=== PATIENT | female | born 1965 | race Caucasian/White ===

== ENCOUNTER 2025-03-28 12:08 | Inpatient (IN) | payer MEDICAID ==
[~2025-03-28] VITALS: Ht 182.9 cm; Wt 146.8 kg
[2025-03-28] VITALS (16 sets, daily range): BP systolic 82–114; BP diastolic 52–67; PULSE 68–97; RESP 16–18; O2SAT 90–96
[2025-03-28] MEDS: diltiazem-NS 100mg/100ml 100 ML IV ONE (12:35)
--- NOTE | 2025-03-28 13:08 | Physician Documentation ---
History of Present Illness ~ General Chief Complaint: Multiple Medical Complaints Stated Complaint: TRANSFER Time Seen by MD: 12:46 Primary Medical Doctor: NONE Source: patient (3), RN/MD (Transferring facility) History of Present Illness Initial Comments Patient was transferred to us from [facility], for NSTEMI, CHF, atrial fib with rapid ventricular rate, on heparin and diltiazem drips. She is a very pleasant morbidly obese female who does not get regular medical care, reports that she previously only had a questionable history of diabetes, and potentially sleep apnea. Over the last month the patient reports progressive weakness in her legs and in her arms, went to [facility] last night because she was unable to get herself off the toilet. Once there, she was found to have mild shortness of breath but profound hypoxia, as well as atrial fibrillation with a rapid ventricular response. Workup included a lactic acid of three which has come down to 2.4, troponin of 917 at 2:30 a.m. in the morning and 985 at 4:45 a.m.. Urinalysis was negative, chemistries r emarkable for glucose of 241 and creatinine of 1.87. Protime 18.6, pro BNP of 650. Chest x-ray showed cardiomegaly and interstitial edema, CT angiogram was performed which showed no intraluminal filling defects suspicious for PE, right pleural effusion was noted, and a small amount of ascites. Patient was found to have O2 sat of about 80% and was placed on high-flow oxygen, heparin drip, and diltiazem. The diltiazem required stopping briefly because of blood pressure dropping a bit, but she arrives with it in place again. Patient reports she has never at any time had any chest pain, and she has no shortness of breath currently. She reports that her lower extremity edema is at baseline. Transferring physician felt that the patient likely had a recent [place], and is now suffering from pulmonary edema and congestive heart failure. Medication Reconciliation Allergies: Coded Allergies: Antihistamines - Alkylamine (Verified Adverse Reaction, Severe, VOMITING, 03/28/25) VOMITING codeine (Verified Adverse Reaction, Mild, NAUSEA, 03/28/25) Past Medical History Past Medical History: Sleep Apnea, Diabetes Other Past Medical History: Morbid obesity Smoking Status: Never smoker Alcohol Use: Sober (Stopped drinking about four weeks ago) Drug Use: none Review of Systems All Other Systems at this time: Reviewed and Negative Physical Exam Physical Exam Vital Signs: Temperature: 98.7, Source: Oral, Heart Rate: 70, Respiratory Rate: 18, BP: 94/56, Pulse Oximetry: 93, Weight: 147.000 Physical Exam General: Pt is awake, alert, oriented x4 in no acute physical distress, speaking in full sentences. Head: Normocephalic and atraumatic. Eyes: Conjunctiva normal. ENT: Mucous membranes moist. Neck: Supple. Chest: There is no accessory muscle use or retractions. Diminished breath sounds on the right. Cardiac: Regular rate and rhythm without murmurs, gallops or rubs. Palpation of the chest wall is normal. Abd: Soft, nondistended, nontender, with normoactive bowel sounds. No guarding or rebound. Extremities: 3+ lower extremity edema. Skin: [place], warm and dry with no significant rash appreciated. Neuro: Cranial nerves II-XII grossly intact. Gait not attempted. Progress Progress Note Labs from transferring Facility: WBC 7.35, hemoglobin 13.8, platelets 124 Sodium 136, potassium 4.0, chloride 98, CO2 30, anion gap eight, glucose 241, BUN 35, creatinine 1.87, total bilirubin 3.6, lactic acid 3.0 (initial), protime 18.6, proBNP 650 Troponin 917, TSH 10.1-7 PH 7.36, CO2 53, O2 23, bicarb 30. Chest x-ray showing cardiomegaly and pulmonary edema CT angiogram showing right-sided pleural effusion without obvious pulmonary emboli. Results/Orders Results/Orders Orders - JUNG BOWMAN MD High Flow O2 Daily (03/28/25 12:30) Heparin 25,000 Unit/250ml Bag (Heparin 2 (03/28/25 13:15) Page Hospitalist (03/28/25 13:15) Fill Out Med Reconciliation (03/28/25 13:15) Completed Orders - JUNG BOWMAN MD Cardiac Ptt (03/28/25 12:35) Diltiazem-Ns 100mg/100ml (Cardizem-Ns 10 (03/28/25 13:15) Hs Troponin I W Calculations (03/28/25 13:15) D-Dimer (03/28/25 12:55) Vital Signs 03/28/25 03/28/25 03/28/25 03/28/25 02:00 12:15 12:22 12:30 Temp 98.7 Pulse 91 70 70 Resp 20 18 B/P (MAP) 89/54 (66) 94/56 Pulse Ox 95 93 O2 Flow Rate 25.0 FiO2 75 70 03/28/25 03/28/25 03/28/25 03/28/25 12:35 12:35 12:36 12:45 Pulse 80 80 75 66 Resp 13 12 B/P (MAP) 94/56 94/56 90/46 (61) 90/50 (63) Pulse Ox 94 94 O2 Flow Rate 0 0 03/28/25 03/28/25 12:47 13:00 Pulse 76 Resp 16 13 B/P (MAP) 102/69 (80) Pulse Ox 93 O2 Flow Rate 0 Laboratory Tests Test 03/28/25 12:55 White Blood Count 6.7 Red Blood Count 4.32 Hemoglobin 12.8 Hematocrit 39.4 Mean Corpuscular Volume 91.3 Mean Corpuscular Hemoglobin 29.6 Mean Corpuscular Hemoglobin Concent 32.4 L Red Cell Distribution Width 19.2 H Platelet Count 123 L Mean Platelet Volume 10.7 H Neutrophils (%) (Auto) 75.0 Lymphocytes (%) (Auto) 10.0 L Monocytes (%) (Auto) 10.9 Eosinophils (%) (Auto) 3.1 Basophils (%) (Auto) 1.0 Neutrophils # (Auto) 5.0 Lymphocytes # (Auto) 0.7 L Monocytes # (Auto) 0.7 Eosinophils # (Auto) 0.2 Basophils # (Auto) 0.1 CBC Comment Platelet Estimate Decreased Red Blood Cell Morphology Perf Polychromasia Few Poikilocytosis 1+ Basophilic Stippling Anisocytosis 2+ Elliptocytes Few APTT (Heparin Protocol) 31 L D-Dimer 1.96 H D-Dimer Comment Coagulation Comments Sodium Level 140 Potassium Level 4.1 Chloride Level 103 Carbon Dioxide Level 28.9 Anion Gap 8 Blood Urea Nitrogen 33 H Creatinine 1.79 H Estimated GFR/1.73 m2 29 BUN/Creatinine Ratio 18.4 Glucose Level 218 H Hemoglobin A1c 9.7 H Osmolality 304 H Lactic Acid Level 1.9 Calcium Level 8.9 Total Bilirubin 3.1 H Aspartate Amino Transf (AST/SGOT) 35 Alanine Aminotransferase (ALT/SGPT) 59 Alkaline Phosphatase 81 Troponin I High Sensitivity 1069 *H C-Reactive Protein 2.59 H Total Protein 5.9 L Albumin 2.4 L Globulin 3.5 Albumin/Globulin Ratio 0.7 L Triglycerides Level 126 Cholesterol Level 99 LDL Cholesterol 64 HDL Cholesterol 20 L Cholesterol/HDL Ratio 5.0 H Procalcitonin 0.14 Thyroid Stimulating Hormone (TSH) 9.71 H Chemistry Comments Consults/PCP Consults/PCP : Time Call Requested: 13:13 Consult Reason/Comments: Hospitalist Additional Comment 1325 Case d/w Dr. Ruiz, who will evaluate patient for admission and consult Cardiology 1345 Case d/w Dr. Noriega, Cardiology, who is in the ED and will consult 1400 Dr. Noriega at bedside, with Hospitalist team Medical Decision Making Additional information obtaine: N/A Findings Differential Diagnosis Patient presenting with pleural effusion, pulmonary edema, NSTEMI, hypoxia. Remains hypoxic here without significant respiratory distress, heart rate controlled with diltiazem, heparin continuing, we will recheck chest x-ray, troponin here. Patient to be admitted to the hospitalist service for further evaluation and management, Cardiology consultation. Departure Time of Disposition: 13:12 Admitted to Inpatient Unit: yes Admission Level of Care: PCU with Tele Impression: Primary Impression: Congestive heart failure Qualified Codes: I50.9 - Heart failure, unspecified Additional Impressions: Pleural effusion Atrial fibrillation with RVR Hypoxia Condition: Guarded Referrals: NO PRIMARY CARE PROVIDER (PCP) Education Educated: Patient Educated regarding: diagnosis, treatment Signature Scribe Signature: Attestation: JUNG BOWMAN MD Mar 28, 2025 13:08
[2025-03-28] MEDS ORDERED: heparin 25,000 UNIT/250ml bag 250 ML IV PRN (13:15)
--- NOTE | 2025-03-28 13:45 | ELECTROCARDIOGRAPH REPORT ---
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 LASHAE Noriega Measurements Intervals [place] Rate: 68 P: 0 CO: 0 QRS: 68 QRSD: 83 T: -10 QT: 534 QTc: 569 Interpretive Statements Atrial fibrillation Low voltage, extremity and precordial leads Prolonged QT interval Electronically Signed On 03-29-2025 13:52:[address] LASHAE Noriega Please click the below link to view image of tracing.
[2025-03-28] MEDS ORDERED: potassium Cl 40MEQ/1/2NS 520ml 520 ML IV PRN (13:55)
[2025-03-28] MEDS ORDERED: potassium Cl 20 mEq SR tablet PO PRN ×2 (13:55)
[2025-03-28] MEDS: PERFLUTREN PROTEIN-A MICROSPHR (Optison) 0.22 MG/ML 3ML VIAL IV ONE (13:55)
[2025-03-28] MEDS ORDERED: magnesium Cl slow-release 64mg tablet PO PRN (13:55)
[2025-03-28] MEDS ORDERED: magnesium sulf-water 4G/100mL 100 ML IV PRN (13:55)
[2025-03-28] MEDS: MESSAGE TO NURSING IV ONE (14:00)
[2025-03-28] MEDS ORDERED: regadenoson 0.4mg/5ml syringe IV PRN (14:25)
[2025-03-28] MEDS ORDERED: metoprolol tartrate 1mg/ml inj IV PRN (14:25)
[2025-03-28] MEDS ORDERED: aminophylline 250mg/10ml inj. IV PRN (14:25)
[2025-03-28 14:33] LABS: CHOL/HDL RATIO 5.0 (0.00-4.99); LDL CHOLESTEROL 64 MG/DL (50-100)
[2025-03-28 14:56] LABS: MEAN PLATELET VOLUME 10.7 FL (7.4-10.4); RED CELL DISTRIBUTION WIDTH 19.2 % (11.5-14.5)
--- NOTE | 2025-03-28 14:57 | HISTORY AND PHYSICAL-Residence ---
History & Physical Providers to CC Resident Creating Document: LEIDY GEORGE, RES CC: SAMUEL ZAMBRANO MD ~ History of Present Illness Primary Medical Doctor: NONE Reason for Admit\Complaint: NSTEMI, SHORTNESS OF BREATH History of Present Illness A 59-year-old female patient was transferred to us from [facility] for further evaluation of NSTEMI congestive heart failure, new onset atrial fibrillation with RVR. Patient is a morbidly obese female, who has not had a primary care doctor nor visited any hospital in the last 15 years. Patient stated that she has had mild shortness of breath for the last one associated with increased work of breathing and bilateral lower extremities edema However the main reason why she was taken to the hospital last evening was, patient could not get up from her toilet seat as she felt her legs were giving up and she had to call for help because she did not could not get up, when she tried to get up after a long time, she had a fall. Patient had some mild skin superficial injury to his right arm. Patient denied any loss of consciousness, syncopal episode. After she was taken to [facility], on further investigations her troponins were elevated at 917 in the next troponin was 985. EKG showed atrial fibrillation with RVR, chest x-ray showed cardiomegaly with interstitial edema. CT angiogram was performed which showed no suspicious for PE however small right pleural effusion was noted, patient was initiated on diltiazem drip and heparin drip. Patient also had mild shortness of breath and was hypoxic, was placed on high-flow oxygen. patient was transferred to our facility for further investigations and management. Course in the ED Patient's troponins continued to elevated to 1045, continued her heparin and diltiazem drip. EKG showed atrial fibrillation with the rate control. On my evaluation, patient stated that she has had shortness of breath for the last one month which has progressed, associated with bilateral lower extremity edema and occasional PNDs, patient also endorsed a mild cough with no sputum production. Patient lives in [place] with her roommates, normally uses a walker Patient does not have any primary care doctor Allergies: Coded Allergies: Antihistamines - Alkylamine (Verified Adverse Reaction, Severe, VOMITING, 03/28/25) VOMITING codeine (Verified Adverse Reaction, Mild, NAUSEA, 03/28/25) Past Medical History Past Medical History Patient denied any past medical history Past Surgical History Surgical History Comment Patient underwent bilateral shoulder surgeries and neck surgery 15 years Appendicectomy Past Social History Social History Comment Patient stated that she smoked for two years when she was [age] years, patient stated that she normally drinks couple of beers/week but quit drinking about four years ago Patient denied any other illicit drug use Alcohol Use: Sober (Stopped drinking about four weeks ago) Drug Use: None ROS All Other Systems: Reviewed and Negative ROS Constitutional: No fever, dizziness, weakness, no decrease in appetite HEENT: Normal vision. No sore throat, epistaxis, tinnitus Cardiovascular: No chest pain/discomfort, palpitations, syncope. no pedal edema Respiratory: Mild sob, cough, no hemoptysis Gastrointestinal: No abdominal pain, nausea, vomiting. No diarrhea, melena. Genitourinary: No frquency, urgency, incontinence, nocturia. No dysuria, hematuria Musculoskeletal: Bilateral lower extremity chronic venous stasis noted Endocrine: No fatigue, polydipsia, polyuria. No heat or cold intolerance Neurologic: No headache, vertigo. No weakness, numbness or tingling of extremities Psychiatric: No hallucinations/delusions, no anhedonia, no suicidal ideation Hematologic: Left arm bruises noted, right arm open skin superficial noted Exam Vitals: Vital Signs Date Time Temp Pulse Resp B/P (MAP) Pulse Ox O2 Delivery O2 Flow Rate FiO2 03/28/25 14:00 72 22 92/56 (68) 94 0 03/28/25 12:30 70 03/28/25 12:15 98.7 General: General: Awake, oriented to person, place and time, morbidly obese HEENT: Conjunctive are pink, sclerae clear, no icterus, pupil is equal in both sides, reactive to light, no ear discharge, no pharyngeal erythema or an edema. Neck: Supple, no JVD, no lymphadenopathy and thyromegaly. Chest: Decreased air entry noted both lungs, bibasilar minimal crackles heard Cardiovascular: S1-S2 heard, irregular rhythm, normal rate, no murmurs or rubs heard Abdomen: Abdominal anasarca noted, No visible peristalsis, Bowel sounds present on auscultation, soft, no tenderness, no guarding, no rigidity Extremities: Bilateral lower extremity chronic venous stasis noted, right great toe with foul-smelling discharging ulcer noted, right lower extremity appeared erythematous and warm to touch, no tenderness noted. Left lower extremity edematous, feeble pulses noted in bilateral lower extremities Neurologic: Mental status: alert and conscious, oriented to place, person and time, preserved memory, normal speech. Cranial nerves I-XII: Normal. Motor system: Preserved power, coordination, no evidenced involuntary movements, strength in lower extremities 3/5 Sensory system: Preserved temperature, pain and vibration sensation. 2+ deep tendon reflexes in biceps, triceps, quadriceps. Negative Babinski. Cerebellar: No nystagmus, dysdiadochokinesia, normal [id number] testing. Musculoskeletal: No joint swelling, deformities, inflammations, and no scoliosis and back tenderness Skin: Warm and dry. Dry oral mucosa. Right arm small a skin abrasion noted, left arm bruises noted Diagnostic Data Diagnostic Data: Laboratory Tests Test 03/28/25 12:55 APTT (Heparin Protocol) 31 SECONDS (45-60) L Coagulation Comments Advance Care Planning Advanced Care plannin - 30 Minutes (Spent 17 minutes discussing advanced care planning/resuscitative methods patient decided she wanted to be full code) Additional Plan 1. NSTEMI MARIAMA score 1 (5% risk at 14 days of: all-cause mortality, new or recurrent VT, or severe recurrent ischemia requiring urgent revascularization) Patient denies any chest pain, serial troponins elevated her troponins were elevated at 917 in the next troponin was 985([facility]), next troponin which was done at our facility was elevated at 1069. EKG shows atrial fibrillation, no ST segment elevations or depression Consulted swinging cut off saw operator , who recommended us to continue to trend patient's troponins; however currently her troponins do not seem very impressive considering her other comorbidities and possibility of type 2 troponinemia. Consult on-call swinging cut off saw operator only if patient's troponins seem to elevate significantly. Plan Continue patient on IV heparin drip for the next 48 hours; Initiated the patient on aspirin 325 mg once now and 81 mg from tomorrow, continue atorvastatin 80 mg, initiated the patient on Coreg 3.125 mg Ordered Lexiscan for patient in a.m. considering her significant comorbidities, and undiagnosed medical conditions 2. Type 2 troponinemia-demand ischemia Likely due to new onset atrial fibrillation, obesity hypoventilation syndrome Serial troponins elevated with minimal difference Plan We will continue to trend troponins and assess patient's clinical condition 3. Acute hypoxemic respiratory failure 2/2 acute on chronic congestive heart failure with unknown ejection fraction, obesity hypoventilation syndrome NYHA class IV, AHA stage C Patient is currently requiring high-flow nasal cannula, saturating well Chief complaints of progressive shortness of breath, fatigue, bilateral lower extremity pitting edema, mild cough with no sputum, occasional symptoms of paroxysmal nocturnal dyspnea Plan Initiated the patient on IV furosemide 20 mg, we will titrate. Patient currently has soft blood pressure Initiated the patient on carvedilol 3.125 mg once daily, we will up titrate once patient's blood pressure improves further Ordered echocardiogram, we will initiate the patient on GDMT drugs based on that Strict input& output monitoring, daily weights 4. New onset atrial fibrillation, currently rate controlled Causes of AFib for this patient: Possible obstructive sleep apnea? [id number] score 2 [not accurate as patient has not seen a primary care doctor in the last 15 years; but A1c clearly indicates undiagnosed diabetes, considering patient's current condition patient likely has a strong history of congestive heart) We will reassess tomorrow and plan on anticoagulation based on that Plan Continue diltiazem drip at 5 milligram/hour, we will slowly titrate and discontinue it in the morning Continue carvedilol 3.125 mg Continue telemetry monitoring 5. Newly diagnosed uncontrolled type 2 diabetes mellitus HGB A1c elevated at 9.7% Initiated the patient on 15 units Lantus, and Severe hyperglycemia hypoglycemic protocol Recommended low carb diet and regular Accu-Cheks 6. Possible right great toe diabetic ulcer, right lower extremity cellulitis Patient has right great toe foul-smelling ulcer, and right lower extremity cellulitis warm to touch erythematous Bilateral chronic venous stasis WBC, inflammatory markers within normal range, CRP elevated at 2.59 Plan Ordered blood cultures wound cultures, ordered bilateral vascular ultrasound to rule out any venous insufficiency Initiated the patient on IV vancomycin and ceftriaxone to cover MRSA and Gram- positive cocci Wound care consult in place 7. ASHELY on CKD stage IIIB, likely prerenal due to vasomotor nephropathy FENA less than 0.2% indicating prerenal Patient's current creatinine is at 1.79 Continue to monitor CMP, ordered renal ultrasound to monitor for any structural changes 8. Possibly newly diagnosed type hypothyroidism TSH elevated 9.71 Ordered T3 and T4 9. Morbid obesity BMI of 44 kg/meter squared Would recommend diet control and possible surgical options 10. Possible sleep apnea Significant morbid obesity We will definitely recommend outpatient sleep study Code Status: Full code DVT Prophylaxis: Heparin Analgesia/Sedation: Dilaudid Lines/Tubes: PIV Nutrition: Heart healthy diet, NPO after midnight PT:yes Prognosis: Guarded Disposition: Patient will get a Lexiscan in a.m., NPO after midnight. Follow up with echocardiogram The above note has been reviewed and supervised by the senior resident PGY 2/PGY 3. Patient was seen and examined and discussed with attending physician Leidy George MD Internal medicine resident,PGY-1 Date of Service: Mar 28, 2025 Billing Provider: SAMUEL ZAMBRANO MD, JAHNAVI, RES Mar 28, 2025 14:56
[2025-03-28 15:02] LABS: CREATININE 1.79 MG/DL (0.40-0.90); TOTAL CARBON DIOXIDE 28.9 MMOL/L (24-32); eCRCL 39 ML/MIN; eGFR 29 ML/MIN
[2025-03-28 15:06] LABS: LEUKOCYTE ESTERASE ,URINE TRACE (Neg); NITRITES, URINE NEGATIVE (Neg); OCCULT BLOOD,URINE MODERATE (Neg)
[2025-03-28 15:09] LABS: UA COLLECTION TYPE FOLEY CATH
[2025-03-28 15:12] LABS: HYALINE CASTS 0-3 /LPF (NEGATIVE); MUCUS STRANDS NONE SEEN /LPF (Neg); SQUAMOUS EPITHELIAL CELL,UR FEW /LPF (FEW)
[2025-03-28 15:20] LABS: URINE AMPHETAMINE SCREEN NEGATIVE (Neg); URINE BARBITUATE SCREEN NEGATIVE (Neg); URINE BENZODIAZEPINES SCREEN NEGATIVE (Neg); URINE CANNABINOID SCREEN POSITIVE (Neg); URINE COCAINE SCREEN NEGATIVE (Neg); URINE METHADONE SCREEN NEGATIVE (Neg); URINE OPIATE SCREEN NEGATIVE (Neg); URINE PHENCYCLIDINE SCREEN NEGATIVE (Neg)
[2025-03-28 15:24] LABS: ELLIPTOCYTES FEW; PLATELET ESTIMATE DECREASED
[2025-03-28] MEDS: aspirin 325mg tablet, delayed-release (Ecotrin) PO ONE (15:31)
[2025-03-28] MEDS: vancomycin/NS 1 GM ADD-VANTAGE 250 ML IV SCH (15:32)
[2025-03-28] MEDS ORDERED: piperacillin/tazo 3.375gm/50ml 50 ML IV SCH (16:00)
[2025-03-28 16:10] LABS: OSMOLALITY UA 352 MOSM/K (50-1400)
[2025-03-28 16:17] LABS: OSMOLALITY 304 MOSM/K (280-300)
[2025-03-28 16:23] LABS: CREATININE,URINE RANDOM 126.0 MG/DL
[2025-03-28] MEDS ORDERED: dextrose 50%-water 50ml dispensing syringe IV PRN (16:30)
[2025-03-28] MEDS ORDERED: glucagon, human recombinant 1mg kit SUBCUT PRN (16:30)
[2025-03-28] MEDS ORDERED: DEXTROSE 15 GM of carb/4 tabs (each vial/BOTTLE has 4 tablets) PO PRN ×2 (16:30)
[2025-03-28] MEDS: CefTRIAXone/D5W-Rocephin 1gm 50 ML IV SCH (17:10)
--- NOTE | 2025-03-28 18:13 | VASCULAR REPORT ---
BILATERAL LOWER EXTREMITY VENOUS DUPLEX REASON FOR EXAMINATION: Bilateral lower extremity pain and edema. Elevated D-dimer. COMPARISON: None TECHNIQUE: Using real-time freeze-frame technique with a high-frequency transducer, multiple longitudinal and transverse sections were obtained. Simultaneous color flow and spectral Doppler imaging was performed. FINDINGS: There is good visualization of the deep venous system with no intraluminal filling defects identified. Normal venous compressibility is seen and there is flow augmentation. Color flow Doppler imaging is unremarkable. There is subcutaneous edema in the popliteal fossa bilaterally. IMPRESSION: NO EVIDENCE OF DEEP VENOUS THROMBOSIS.
[2025-03-28] MEDS: INSULIN LISPRO 100 UNIT/ML INSULN.PEN MULTI-DOSE SQ SCH (18:42)
--- NOTE | 2025-03-28 18:45 | RADIOLOGY REPORT ---
RENAL ULTRASOUND REASON FOR EXAM: chronic kidney disease COMPARISON: None TECHNIQUE: Real-time sector scans in multiple planes were obtained over the kidneys, ureters and bladder. FINDINGS: Images are suboptimal. Both kidneys are poorly visualized. The right kidney measures 14.0 cm. The left kidney measures 10.1 cm. No mass is identified. There is no hydronephrosis. The urinary bladder is not significantly distended during the examination, approximately 155 cc. The ureteral jets are not visualized during this exam. IMPRESSION: Both kidneys are poorly visualized. No hydronephrosis is identified of either kidney within the limitations of this exam.
[2025-03-28] MEDS ORDERED: heparin, porcine 5000 units/ml vial SQ SCH (20:00)
[2025-03-28] MEDS: diltiazem-NS 100mg/100ml 100 ML IV PRN (20:08)
[2025-03-28] MEDS: insulin glargine (Lantus) pen - multi-dose SQ SCH (20:25)
[2025-03-28] MEDS: heparin 10,000 units/1 ML INJ IV PRN (23:23)
[2025-03-29] VITALS (22 sets, daily range): BP systolic 83–114; BP diastolic 48–72; PULSE 62–88; RESP 13–22; TEMP 95.8–98.7; O2SAT 88–98
[2025-03-29] MEDS ORDERED: diltiazem-NS 100mg/100ml 100 ML IV SCH (06:30)
[2025-03-29] MEDS ORDERED: diltiazem-D5W 125mg/125ml 125 ML IV SCH (06:30)
[2025-03-29 07:22] LABS: MEAN PLATELET VOLUME 10.3 FL (7.4-10.4); RED CELL DISTRIBUTION WIDTH 19.2 % (11.5-14.5)
[2025-03-29] MEDS: aspirin 81mg, enteric-coated 1 TAB TABLET.DR PO SCH (07:26)
[2025-03-29 07:44] LABS: CREATININE 1.82 MG/DL (0.40-0.90); TOTAL CARBON DIOXIDE 28.8 MMOL/L (24-32); eCRCL 38 ML/MIN; eGFR 28 ML/MIN
--- NOTE | 2025-03-29 10:07 | RADIOLOGY REPORT ---
CHEST RADIOGRAPH INDICATION: CHF TECHNIQUE: Single frontal view of the chest was obtained COMPARISON: XR CHEST AP PORTABLE on DOS: 03/28/25 FINDINGS: Lines and Tubes: None Lungs: Scattered reticular opacities may reflect [id number] pulmonary edema versus atypical pneumonia. Right lower lobe pneumonia not excluded. Pleura: No pleural effusion. No pneumothorax. Cardiomediastinal contours: Mild cardiomegaly. Bones: No acute osseous abnormality. IMPRESSION: 1. Scattered reticular opacities may reflect [id number] pulmonary edema versus atypical pneumonia. 2. Right lower lobe pneumonia not excluded. 3. Mild cardiomegaly.
[2025-03-29] MEDS: MESSAGE TO NURSING IV ONE (10:58)
[2025-03-29 12:34] LABS: PRO BRAIN NATRIURETIC PEPTIDE 3823 PG/ML (0-125)
--- NOTE | 2025-03-29 14:18 | PROGRESS NOTE ---
Progress Note Cardiology Providers to CC ~ Subjective Subjective Patient seen and examined this a.m. in PCU. Overall comfortable at rest. No chest pain or shortness of breath. Objective Result Diagram: 03/29/25 0653 03/29/25 0653 Objective General: Morbidly obese, Neck: Supple without enlargement of the thyroid, or lymphadenopathy, Chest: Normal size and shape, no tenderness, nonlabored breathing, Breath sounds diminished in bases. Heart: Irregularly irregular, variable S1. Abdomen: Soft, nontender, no organomegaly, bowel sounds present. Extremities: Bilateral lower extremity edema one to 2+ with cellulitis. Coagulation Studies Laboratory Tests Test 03/28/25 12:55 03/29/25 06:53 D-Dimer 1.96 MG/L FEU (0-0.50) H D-Dimer Comment APTT (Heparin Protocol) 53 SECONDS (45-60) Coagulation Comments Problem\Assessment\Plan Additional Plan 1. 59-year-old female with elevated troponin in the setting of multiple comorbidities and atrial fibrillation. MARIAMA score 1 (5% risk at 14 days of: all-cause mortality, new or recurrent SC, or severe recurrent ischemia requiring urgent revascularization) Patient denies any chest pain, serial troponins elevated her troponins were elevated at 917 in the next troponin was 985([facility]), next troponin which was done at our facility was elevated at 1069. EKG shows atrial fibrillation, no ST segment elevations or depression Consulted wire repairer , who recommended us to continue to trend patient's troponins; however currently her troponins do not seem very impressive considering her other comorbidities and possibility of type 2 troponinemia. Echocardiogram ejection fraction normal to 70% with no wall motion abnormalities. Consider myocardial perfusion scan. 2. Type 2 troponinemia-demand ischemia Likely due to new onset atrial fibrillation, obesity hypoventilation syndrome Serial troponins elevated with minimal difference Plan We will continue to trend troponins and assess patient's clinical condition 3. Acute hypoxemic respiratory failure 2/2 acute on chronic congestive heart failure with unknown ejection fraction, obesity hypoventilation syndrome Titrate diuretics as required. 4. New onset atrial fibrillation, currently rate controlled Causes of AFib for this patient: Possible obstructive sleep apnea? [id number] score 4 Plan Continue diltiazem drip at 5 milligram/hour, we will slowly titrate and discontinue it in the morning Continue carvedilol 3.125 mg Continue telemetry monitoring 5. Diabetes, hypertension, dyslipidemia with low HDL: HGB A1c elevated at 9.7% recommend keep LDL less than 55 mg %, systolic blood pressure less than 130 mm of mercury and hemoglobin is A1c less than 7%. 7. ASHELY on CKD stage IIIB, likely prerenal due to vasomotor nephropathy Continue to monitor 8. Other comorbidities include: Hypothyroidism, morbid obesity, sleep apnea recommend weight loss and evaluation for sleep apnea on CPAP is necessary. TAMERA OSBORNE MD Mar 29, 2025 14:18
--- NOTE | 2025-03-29 15:58 | PROGRESS NOTE- Residence ---
Progress Note - Resident Providers to CC Resident Creating Document: STEPHANIALLEIDY RES ~ Antibiotic Timeout Antibiotic Ordered?: Yes Subjective Patient was seen and examined at bedside, she stated that she feels better breathing qureshi compared to yesterday does not in any acute distress. However she desaturates even with minimal movements. Objective Vital Signs Date Time Temp Pulse Resp B/P (MAP) Pulse Ox O2 Delivery O2 Flow Rate FiO2 03/29/25 12:36 72 18 90 25.0 90 03/29/25 11:00 98.1 85/53 (64) High Flow Nasal Cannula Result Diagram: 03/29/25 0653 03/29/2553 General: Awake, oriented to person, place and time, morbidly obese HEENT: Conjunctive are pink, sclerae clear, no icterus, pupil is equal in both sides, reactive to light, no ear discharge, no pharyngeal erythema or an edema. Neck: Supple, no JVD, no lymphadenopathy and thyromegaly. Chest: Decreased air entry noted both lungs, bibasilar minimal crackles heard Cardiovascular: S1-S2 heard, irregular rhythm, normal rate, no murmurs or rubs heard Abdomen: Abdominal anasarca noted, No visible peristalsis, Bowel sounds present on auscultation, soft, no tenderness, no guarding, no rigidity Extremities: Bilateral lower extremity chronic venous stasis noted, right great toe with foul-smelling discharging ulcer noted, right lower extremity appeared erythematous and warm to touch, no tenderness noted. Left lower extremity edematous, feeble pulses noted in bilateral lower extremities Neurologic: Mental status: alert and conscious, oriented to place, person and time, preserved memory, normal speech. Cranial nerves I-XII: Normal. Motor system: Preserved power, coordination, no evidenced involuntary movements, strength in lower extremities 3/5 Sensory system: Preserved temperature, pain and vibration sensation. 2+ deep tendon reflexes in biceps, triceps, quadriceps. Negative Babinski. Cerebellar: No nystagmus, dysdiadochokinesia, normal [id number] testing. Musculoskeletal: No joint swelling, deformities, inflammations, and no scoliosis and back tenderness Skin: Warm and dry. Dry oral mucosa. Right arm small a skin abrasion noted, left arm bruises noted Coagulation Studies Laboratory Tests Test 03/28/25 12:55 12/14/25 06:53 D-Dimer 1.96 MG/L FEU (0-0.50) H D-Dimer Comment APTT (Heparin Protocol) 53 SECONDS (45-60) Coagulation Comments Advance Care Planning Advanced Care plannin - 30 Minutes Plan Plan Assessment A 59-year-old female patient was transferred to us from [facility] for further evaluation of NSTEMI congestive heart failure, new onset atrial fibrillation with RVR. 1. NSTEMI MARIAMA score 1 (5% risk at 14 days of: all-cause mortality, new or recurrent AR, or severe recurrent ischemia requiring urgent revascularization) Patient denies any chest pain, serial troponins elevated her troponins were elevated at 917 in the next troponin was 985([facility]), next troponin which was done at our facility was elevated at 1069. EKG shows atrial fibrillation, no ST segment elevations or depression Consulted compliance program manager , who recommended us to continue to trend patient's troponins; however currently her troponins do not seem very impressive considering her other comorbidities and possibility of type 2 troponinemia. Serial troponins continued to trend down Patient could not undergo Lexiscan as she was desaturating without high-flow nasal oxygen, had no acute indication for Lexiscan currently Plan Discontinued patient's heparin drip Continue the patient on aspirin 81 mg , continue atorvastatin 80 mg, Coreg 3.125 mg b.i.d. 2. Type 2 troponinemia-demand ischemia Likely due to new onset atrial fibrillation, obesity hypoventilation syndrome Serial troponins elevated with minimal difference and downtrended 3. Acute hypoxemic respiratory failure 2/2 acute on chronic congestive heart failure with preserved ejection fraction 60-65%, obesity hypoventilation syndrome NYHA class IV, AHA stage C Patient is currently requiring high-flow nasal cannula, saturating well Chief complaints of progressive shortness of breath, fatigue, bilateral lower extremity pitting edema, mild cough with no sputum, occasional symptoms of paroxysmal nocturnal dyspnea Echocardiogram reported EF of 60-65%, normal systolic function, RVSP elevated at 44 mmHg Patient's proBNP elevated 3823 Plan Continue the patient on carvedilol 3.125 mg b.i.d., titrate once patient's blood pressure improves further Continue furosemide 40 mg once a day GDMT drugs-initiated the patient on Jardiance 10 mg, carvedilol 3.125 mg b.i.d. Initiated the patient on IV Solu-Medrol 62.5 mg once a day to help with her breathing Strict input& output monitoring, daily weights 4. New onset atrial fibrillation, currently rate controlled Causes of AFib for this patient: Possible obstructive sleep apnea? [id number] score 2 [not accurate as patient has not seen a primary care doctor in the last 15 years; but A1c clearly indicates undiagnosed diabetes, considering patient's current condition patient likely has a strong history of congestive heart] Does not meet criteria for anticoagulant Plan Discontinue diltiazem this morning Continue carvedilol 3.125 mg bid Continue telemetry monitoring 5. Newly diagnosed uncontrolled type 2 diabetes mellitus HGB A1c elevated at 9.7% Initiated the patient on 15 units Lantus, and Severe hyperglycemia hypoglycemic protocol Recommended low carb diet and regular Accu-Cheks 6. Possible right great toe diabetic ulcer, right lower extremity cellulitis Patient has right great toe foul-smelling ulcer, and right lower extremity cellulitis warm to touch erythematous Bilateral chronic venous stasis WBC, inflammatory markers within normal range, CRP elevated at 2.59 Vascular ultrasound ruled out any venous insufficiency,dvt Plan Ordered blood cultures wound cultures, Continue the patient on IV vancomycin(day 2) and ceftriaxone(day 2) to cover MRSA and Gram-positive cocci Wound care consult in place 7. ASHELY on CKD stage IIIB, likely prerenal due to vasomotor nephropathy FENA less than 0.2% indicating prerenal Patient's current creatinine is at 1.93 Renal ultrasound no hydronephrosis noted Continue to monitor CMP 8. Possibly newly diagnosed type hypothyroidism TSH elevated 9.71 Ordered T3 and T4, pending 9. Morbid obesity BMI of 44 kg/meter squared Would recommend diet control and possible surgical options 10. Possible sleep apnea Significant morbid obesity We will definitely recommend outpatient sleep study Code Status: Full code DVT Prophylaxis: Heparin Analgesia/Sedation: Dilaudid Lines/Tubes: PIV Nutrition: Heart healthy diet PT:yes Prognosis: Guarded Disposition: assess patient's fluid status tomorrow, physical therapy to work with the patient. The above note has been reviewed and supervised by the senior resident PGY 2/PGY 3. Patient was seen and examined and discussed with attending physician Leiyd George MD Internal medicine resident,PGY-1 Date of Service: Mar 29, 2025 Billing Provider: SAMUEL ZAMBRANO MD Common Visit Codes: 89890-[id number] INP/OBS CARE(HIGH) LEIDY GEORGE, RES Mar 29, 2025 15:58 SAMUEL ZAMBRANO MD Mar 29, 2025 16:06
[2025-03-29] MEDS ORDERED: ipratropium/albuterol 3ml nebule NEB PRN (17:15)
--- NOTE | 2025-03-29 17:35 | CARDIOLOGY REPORT ---
APPROVED REPORT EXAM: Comprehensive 2D, Doppler, and color-flow Echocardiogram. Patient Location: ER 3 Blood Pressure: 95/52 mmHg Heart Rate: 55-71 bpm Rhythm: ATRIAL FIBRILLATION Indications CONGESTIVE HEART FAILIRE TROPONIN 1069 ATRIAL FIBRILLATION DIABETES MELLITUS 2 NSTEMI Biazzi Nitrator Operator: NONE Previous echo: NONE 2D Dimensions IVSd 1.1 (0.7-1.1cm) LVDd 4.3 cm PWd 1.1 (0.7-1.1cm) IVSs 1.2 (0.8-1.2cm) LVDs 2.8 (2.5-4.0cm) PWs 1.2 (0.8-1.2cm) LVOT Diameter 1.94 (1.8-2.4cm) LVEF(%) 64.6 (>50%) FS (%) 35.0 % SV 53.5 ml CO 3.5 L/min M-Mode Dimensions Left Atrium(MM) 4.90 (2.5-4.0cm) Aortic Root 3.27 (2.2-3.7cm) Aortic Cusp Exc 2.10 (1.5-2.0cm) Aortic Valve AoV Peak Jhon. 150.5 cm/s AoV VTI 21.0 cm AO Peak GR. 9.1 mmHg AO Mean GR. 4 mmHg LVOT VTI 16.71 cm LVOT Peak Jhon. 106.0 cm/s VAZQUEZ(VTI)/BSA 2.35 cm2/m2 VAZQUEZ (VTI) 2.35 cm2 AV DI 0.79 % Mitral Valve MV Peak Gr. 6 mmHg MV PHT 72 ms MVA (PHT) 3.06 cm2 MV VMax 119.4 cm/s Tricuspid Valve TR P. Velocity 291 cm/s RAP ESTIMATE 10 mmHg TR Peak Gr. 34 mmHg RVSP 44 mmHg LEFT VENTRICLE Normal LV size and wall thickness. Overall systolic function is normal. LVEF is 60-65%. RIGHT VENTRICLE RV appears normal in size and function. Elevated right heart pressures with an RVSP of 44 mmHg. ATRIA Left atrium is moderately dilated. AORTIC VALVE Trileaflet AV appears mildly sclerotic without stenosis. No insufficiency by color and spectral flow Doppler. MITRAL VALVE Mild MV annular calcification without stenosis. Trace regurgitation by color and spectral flow Doppler. TRICUSPID VALVE TV appears structurally normal with mild regurgitation by color and spectral flow Doppler. PULMONIC VALVE Normal PV without stenosis, physiologic insufficiency by color and spectral flow Doppler. GREAT VESSELS The aortic root is normal in size. PERICARDIUM Normal pericardium. No effusion. Other Information Study Quality: Adequate but difficult apical/subcostal window due to body habitus. Conclusion Normal LV size and wall thickness. Overall systolic function is normal. LVEF is 60-65%. RV appears normal in size and function. Elevated right heart pressures with an RVSP of 44 mmHg. Left atrium is moderately dilated. Trileaflet AV appears mildly sclerotic without stenosis. No insufficiency by color and spectral flow Doppler. Mild MV annular calcification without stenosis. Trace regurgitation by color and spectral flow Doppler. TV appears structurally normal with mild regurgitation by color and spectral flow Doppler. Normal pericardium. No effusion.
[2025-03-30] VITALS (21 sets, daily range): BP systolic 95–119; BP diastolic 48–64; PULSE 62–109; RESP 14–20; TEMP 96.9–98.6; O2SAT 89–97
[2025-03-30] MEDS: VANCOMYCIN LEVEL IV ONE (03:30)
[2025-03-30 04:13] LABS: CREATININE 2.26 MG/DL (0.40-0.90); TOTAL CARBON DIOXIDE 28.3 MMOL/L (24-32); eCRCL 31 ML/MIN; eGFR 22 ML/MIN
--- NOTE | 2025-03-30 05:58 | CONSULTATION ---
DATE OF CONSULTATION: 03/28/2025 DICTATING PHYSICIAN: LASHAE Noriega MD CARDIOLOGY CONSULTATION REQUESTING PHYSICIAN: ER physician/hospitalist. INDICATION: The patient is a 59-year-old postmenopausal morbidly obese female with AFib with RVR, CHF, NSTEMI, cellulitis, sleep apnea, and multiple comorbidities. HISTORY OF PRESENT ILLNESS: The patient used to live in [place], now lives in [place] for the last few years and she says she lives with 3 other roommates and has been on SSI for some time. She says she does not have any regular follow-up with primary care physician. She did have a question of history of diabetes. The patient says she has been having exertional fatigue, shortness of breath, ankle swelling for the last maybe 2 to 3 months, which have got progressively worse. Then she went to [facility] last night because she could not get up from toilet seat. She was found to have profound hypoxia, AFib with RVR and also had lactic acidosis. Her troponin was 917 and it then went up to 985 this morning, and her glucose was 241 and creatinine was 7.87. Subsequently then she was transferred to [facility] for further evaluation and treatment. The patient denies any prior history of myocardial infarctions or congestive heart failure. No history of sustainedpalpitations or syncopal episode. No prior history of PAF. PAST SURGICAL HISTORY: * The patient says she has had bilateral shoulder surgeries. * Neck surgery. * Appendicectomy and ovarian cyst removal. 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 They share their work and routine. The patient's habits: The patient denies any smoking. Quit alcohol about a month ago. No history of substance abuse. FAMILY HISTORY: Father at age 68, he had multiple comorbidities, of probably heart disease. Mother in the 50s, had diabetes. REVIEW OF SYMPTOMS: HEENT: The patient wears reading glasses. No hearing impairment. RESPIRATORY: Exertional shortness of breath. MUSCULOSKELETAL: Arthralgia. CENTRAL NERVOUS SYSTEM: No stroke, TIA, or seizure. PSYCHIATRIC: No anxiety or depression. SKIN: She has cellulitis and ankle swelling. PHYSICAL EXAMINATION: GENERAL: The patient is a 59-year-old morbidly obese female seen and examined in ER room #3, comfortable at rest. Currently on IV Cardizem 15 mg per hour. AFib under control. VITAL SIGNS: Pulse 76, respiratory rate 16, blood pressure 102/58, 92% pulse ox on FiO2 of 70%. CARDIAC: Irregularly irregular. Variable S1, S2. Normal S3 and S4. LUNGS: Decreased breath sounds bilaterally. ABDOMEN: Morbidly obese. Hepatosplenomegaly cannot be appreciated. Bowel sounds are present. EXTREMITIES: 2+ edema. Cellulitis in both legs, right more than left. LABORATORY DATA: Her labs include WBC 6.1, hemoglobin 12.8, hematocrit 39.4, platelet count 123. Sodium 140, potassium 4.1, chloride 103, carbon dioxide 29, BUN 36, creatinine 1.79. Troponin of 1069. Total cholesterol 99, LDL of 64, HDL of 20, and triglycerides were 126. DIAGNOSTIC DATA: EKG: AFib with controlled response. ASSESSMENT AND PLAN: * A 59-year-old postmenopausal female with atrial fibrillation with rapid ventricular response. IV Cardizem. Continue heparin, IV Cardizem. Start carvedilol 6.25 mg p.o. b.i.d. Gradually wean her off of IV Cardizem. It is unclear how long she has had atrial fibrillation and could consider electrical conversion. * Elevated troponin, ?type 2 myocardial infarction, maybe because of atrial fibrillation with rapid ventricular response. Continue IV heparin. If we can get myocardial perfusion scan. * Possible diastolic congestive heart failure with cellulitis. Keep her euvolemic. 1500 mL fluid restriction, low-salt diet, p.r.n. diuretics. * Diabetes and dyslipidemia. Extensively counseled on coronary risk factor modification to keep LDL less than 55 mg/dL and systolic blood pressure less than 130 mmHg and hemoglobin A1c less than 7%. * Other comorbidities: Obstructive sleep apnea with recommended sleep evaluation and possible CPAP. * Morbid obesity with edema and cellulitis. Evaluate and treat any underlying infection. LASHAE Noriega MD TID: [id number] RECEIPT: [id number] /JUN MTDD
[2025-03-30 06:34] LABS: MEAN PLATELET VOLUME 10.7 FL (7.4-10.4); RED CELL DISTRIBUTION WIDTH 19.3 % (11.5-14.5)
[2025-03-30 07:05] LABS: CREATININE 2.28 MG/DL (0.40-0.90); TOTAL CARBON DIOXIDE 27.9 MMOL/L (24-32); eCRCL 31 ML/MIN; eGFR 22 ML/MIN
[2025-03-30] MEDS: EMPAGLIFLOZIN 10 MG TABLET PO SCH (07:45)
[2025-03-30 09:08] LABS: GIANT PLATELET FEW; LARGE PLATELETS FEW; PLATELET ESTIMATE DECREASED
--- NOTE | 2025-03-30 14:30 | PROGRESS NOTE- Residence ---
Progress Note - Resident Providers to CC Resident Creating Document: MARTÍN VASQUEZ, GHANSHYAM ~ Central Line/PICC still needed: N\A Davis-Non Protocol Davis Indications Met/Not Met: F/C Indications Not Met Antibiotic Timeout Antibiotic Ordered?: Yes Subjective Patient was seen and examined at bedside. She still requires high-flow oxygen via nasal cannula. She desaturates rapidly without the oxygen or even with slight exertion. No acute symptoms overnight. Objective Vital Signs Date Time Temp Pulse Resp B/P (MAP) Pulse Ox O2 Delivery O2 Flow Rate FiO2 03/30/25 11:25 89 16 89 25.0 90 03/30/25 11:00 97.3 111/52 (71) High Flow Nasal Cannula Result Diagram: 03/30/2512 03/30/25 0612 General: Awake, oriented to person, place and time, morbidly obese HEENT: Conjunctive are pink, sclerae clear, no icterus, pupil is equal in both sides, reactive to light, no ear discharge, no pharyngeal erythema or an edema. Neck: Supple, no JVD, no lymphadenopathy and thyromegaly. Chest: Decreased air entry noted both lungs, bibasilar fine Creps heard. Cardiovascular: S1-S2 heard, irregular rhythm, normal rate, no murmurs or rubs heard Abdomen: Abdominal anasarca noted, No visible peristalsis, Bowel sounds present on auscultation, soft, no tenderness, no guarding, no rigidity Extremities: Bilateral lower extremity chronic venous stasis noted, right great toe with foul-smelling discharging ulcer noted which is bandaged, the bandages look clean and dry. right lower extremity appeared erythematous and warm to touch, no tenderness noted. Left lower extremity edematous, feeble pulses noted in bilateral lower extremities Neurologic: Mental status: alert and conscious, oriented to place, person and time, preserved memory, normal speech. Cranial nerves I-XII: Normal. Motor system: Preserved power, coordination, no evidenced involuntary movements, strength in lower extremities 3/5 Sensory system: Preserved temperature, pain and vibration sensation. 2+ deep tendon reflexes in biceps, triceps, quadriceps. Negative Babinski. Cerebellar: No nystagmus, dysdiadochokinesia, normal bvyhqn-ep-umol testing. Musculoskeletal: No joint swelling, deformities, inflammations, and no scoliosis and back tenderness Skin: Warm and dry. Dry oral mucosa. Right arm small a skin abrasion noted, left arm bruises noted Coagulation Studies Laboratory Tests Test 03/28/25 12:55 03/29/25 06:53 D-Dimer 1.96 MG/L FEU (0-0.50) H D-Dimer Comment APTT (Heparin Protocol) 53 SECONDS (45-60) Coagulation Comments Plan Plan Assessment: This is a 59-year-old female with no prior medical contact, transferred from [facility] in view of shortness of Breath and raising troponin. She is currently being treated for acute hypoxemic respiratory failure secondary to acute exacerbation of heart failure with preserved ejection fraction, started on GDM T , new onset atrial fibrillation and a type 2 NH due to heart failure. Her AFib is rate controlled with Eliquis as an anticoagulant. We started her on dobutamine drip today so that we can diurese her well in the background of soft blood pressure. Plan: 1. Acute hypoxemic respiratory failure Secondary to acute on chronic congestive heart failure with preserved ejection fraction 60-65%, obesity hypoventilation syndrome NYHA class IV, AHA stage C Patient is currently requiring high-flow nasal cannula, saturating well. Started CPAP at night. Echocardiogram reported EF of 60-65%, normal systolic function, RVSP elevated at 44 mmHg Patient's proBNP elevated 3823 Chest x-ray shows pulmonary congestion with pleural effusion. Plan She had an output of 1300 yesterday with a negative balance of 0. Clinically evaluating, the patient can diurese more. Started the patient on dobutamine drip 2 mcg/kg per minute in view of soft blood pressure. Increased her Lasix to 40 mg IV b.i.d. Dobutamine can also cause renal vasodilation at smaller doses and help with kidney functions. Continue GDM T with Jardiance 10 mg, carvedilol 3.125 mg b.i.d. Continue Solu-Medrol 62.5 IV b.i.d., DuoNeb q.4h p.r.n.. Strict input& output monitoring, daily weights. Dr. Noriega on board 2. Type 2 troponinemia-demand ischemia Patient given complaints of shortness of Breath and elevated trops, which down trended. Likely due to acute exacerbation CHF, new onset atrial fibrillation, obesity hypoventilation syndrome 3. New onset atrial fibrillation with controlled ventricular rate Yfn Vasc: 3, has bled score:2 Carvedilol 3.125 mg b.i.d Her heart rate is irregular, ranging from 60s to 90s. 4. Newly diagnosed uncontrolled type 2 diabetes mellitus HGB A1c elevated at 9.7% Educated the patient about her new diagnosis, educated on diet and lifestyle modification. Increase the dose of Lantus to 25 units, with high-dose sliding scale. Current blood sugars in the range of 200-300. 5. Right great toe ulcer, most likely diabetic foot ulcer with cellulitis Currently does not meet SIRS criteria. WBC, inflammatory markers within normal range Vascular ultrasound ruled out any venous insufficiency,dvt Awaiting blood cultures. Continue the patient on IV vancomycin(day 3) and ceftriaxone(day 3) Wound care consult in place 6. ASHELY likely prerenal due to vasomotor nephropathy FENA less than 0.2% indicating prerenal Patient's creatinine bumped up to 2.28 today, BUN 43. We will monitor the patient with dobutamine drip, which causes renal vasal dilation at low doses. Renal ultrasound was essentially normal. Continue to monitor CMP 7. New diagnosis of primary hypothyroidism TSH elevated 9.71 Ordered T3 and T4, pending 8. Morbid obesity BMI of 44 kg/meter squared Would recommend diet control and possible surgical options 9. Possible sleep apnea Significant morbid obesity CPAP at night, outpatient sleep study. Code Status: Full code DVT Prophylaxis: Eliquis 5 mg b.i.d. Analgesia/Sedation: Dilaudid Lines/Tubes: PIV Nutrition: 75 g carb controlled, heart healthy. PT:yes Prognosis: Guarded Disposition: assess patient's fluid status tomorrow, physical therapy to work with the patient. The above note has been reviewed and supervised by the senior resident PGY 2/PGY 3. Patient was seen and examined and discussed with attending physician Martín Vasquez MD Internal medicine resident,PGY-1 Date of Service: Mar 30, 2025 Billing Provider: DARYL SCHWARTZ MD,MARTÍN, RES Mar 30, 2025 14:30
[2025-03-30] MEDS: DOBUTamine-DoBUTrex 500mg/D5W 250 ML IV SCH ×2 (14:40→22:25)
[2025-03-30] MEDS: vancomycin inj. 750 MG in normal saline 250ml IV soln 250 ML IV SCH (17:27)
--- NOTE | 2025-03-30 17:52 | PROGRESS NOTE ---
Progress Note Cardiology Providers to CC ~ Subjective Subjective Patient seen and examined this evening. Events noted. Noted patient being started on dobutamine by primary team Objective Result Diagram: 03/30/25 0612 03/30/25 06 Objective General: Conscious alert oriented Neck: Supple without enlargement of the thyroid, or lymphadenopathy, Chest: Normal size and shape, no tenderness, nonlabored breathing, Breath sounds diminished bibasilarly Heart: Irregularly irregular variable S1. Abdomen: Soft, nontender, no organomegaly, bowel sounds present. Extremities: Bilateral edema with cellulitis Coagulation Studies Laboratory Tests Test 03/28/25 12:55 03/29/25 06:53 D-Dimer 1.96 MG/L FEU (0-0.50) H D-Dimer Comment APTT (Heparin Protocol) 53 SECONDS (45-60) Coagulation Comments Problem\Assessment\Plan Additional Plan 1. 59-year-old female with elevated troponin in the setting of multiple comorbidities respiratory failure: Being managed by primary team. 2. History of atrial fibrillation. On amiodarone carvedilol and anticoagulation Echocardiogram ejection fraction normal to 70% with no wall motion abnormalities. 2. Type 2 troponinemia-demand ischemia Likely due to new onset atrial fibrillation, obesity hypoventilation syndrome Consider myocardial perfusion scan when stable 5. Diabetes, hypertension, dyslipidemia with low HDL: HGB A1c elevated at 9.7% recommend keep LDL less than 55 mg %, systolic blood pressure less than 130 mm of mercury and hemoglobin is A1c less than 7%. 7. ASHELY on CKD BUN of 43 and creatinine of 2.28 on 03/30/2025 8. Other comorbidities include: Hypothyroidism, morbid obesity, sleep apnea recommend weight loss and evaluation for sleep apnea on CPAP is necessary. TAMERA OSBORNE MD Mar 30, 2025 17:52
[2025-03-30] MEDS: insulin glargine (Lantus) pen - multi-dose SQ SCH (21:28)
[2025-03-30] MEDS: INSULIN LISPRO 100 UNIT/ML INSULN.PEN MULTI-DOSE SQ ONE (23:01)
[2025-03-31] VITALS (30 sets, daily range): BP systolic 94–119; BP diastolic 57–72; PULSE 78–100; RESP 12–22; TEMP 96.3–98.9; O2SAT 89–97
[2025-03-31 07:27] LABS: MEAN PLATELET VOLUME 10.8 FL (7.4-10.4); RED CELL DISTRIBUTION WIDTH 19.2 % (11.5-14.5)
[2025-03-31 07:44] LABS: CREATININE 2.76 MG/DL (0.40-0.90); TOTAL CARBON DIOXIDE 26.9 MMOL/L (24-32); eCRCL 25 ML/MIN; eGFR 18 ML/MIN
[2025-03-31] MEDS: INSULIN LISPRO 100 UNIT/ML INSULN.PEN MULTI-DOSE SQ SCH (08:53)
[2025-03-31] MEDS: insulin glargine (Lantus) pen - multi-dose SQ SCH (08:54)
[2025-03-31 10:09] LABS: LARGE PLATELETS FEW; PLATELET ESTIMATE NORMAL
--- NOTE | 2025-03-31 11:58 | CONSULTATION REPORT - RESIDENT ---
Consult Providers to CC Resident Creating Document: ROBBY ODEN GHANSHYAM MEJIA History of Present Illness Reason for Admit\Complaint: NSTEMI, acute hypoxemic respiratory failure History of Present Illness Nephrology consultation note: The Nephrology team has been consulted in view of the patient's worsening renal function and ASHELY on CKD. This is 59 years old female that was transferred from [facility] for evaluation and management of NSTEMI, new onset atrial fibrillation with a RVR. Patient presented to [facility] ER with chief complaints of generalized weakness and difficulty getting herself up from the toilet seat because she felt her legs were giving up and also had fall. The patient also endorsed worsening shortness of breaths which is more on exertion associated with the chronic bilateral lower extremity edema. She denied any history of kidney problems or history of CKD in the past. She stated that he has not seen a primary care physician or any other physician in the past 15 years. She also reported that she takes ibuprofen regularly for pain. She currently denied any chest pain, palpitations, abdominal pain, burning micturition. She denied any nausea vomiting, diarrhea. Allergies: Coded Allergies: Antihistamines - Alkylamine (Verified Adverse Reaction, Severe, VOMITING, 03/28/25) VOMITING codeine (Verified Adverse Reaction, Mild, NAUSEA, 03/28/25) Past Medical History Past Medical History Diabetes mellitus Obstructive sleep apnea Past Surgical History Surgical History Comment Bilateral shoulder surgeries Cervical laminectomy surgery Appendectomy Past Social History Social History Comment History of occasional alcohol use-quit four years ago. Denied any recreational drug use. Remote history of smoking when she was 17 years old. ROS ROS As stated above in the HPI, otherwise all systems are reviewed and negative. Exam Vitals: Vital Signs Date Time Temp Pulse Resp B/P (MAP) Pulse Ox O2 Delivery O2 Flow Rate FiO2 03/31/25 11:42 92 20 91 Hi-Flow+ 25 90 03/31/25 03:00 113/60 (77) 03/31/25 02:00 98.0 General: General: Awake and Alert, obese female. No acute distress. HEENT: Conjunctiva pink, Sclera clear, Mucus Membranes moist. Neck: Supple without masses and tenderness. Resp: On high-flow oxygen via nasal cannula. Decreased breath sounds bilaterally. Bibasilar crackles present. Heart: Irregular rate and rhythm. S1-S2 heard. No murmurs present. Abdomen: Soft and non tender no organomegaly Extremities: Bilateral chronic venous stasis noted. 3+ edema noted. Right great toe dressing in place. Skin: Warm and Dry. Neurology: Patient oriented to time place and person. Cranial nerves 2-12 intact. No focal motor or sensory deficits noted. Diagnostic Data Last Recorded Lab Results: 03/31/25 0646 03/31/25 0646 Diagnostic Data: Laboratory Tests Test 03/28/25 12:55 03/29/25 06:53 D-Dimer 1.96 MG/L FEU (0-0.50) H D-Dimer Comment APTT (Heparin Protocol) 53 SECONDS (45-60) Coagulation Comments Additional Plan ASHELY on CKD stage 4 CKD most likely secondary to underlying diabetes mellitus The patient reported that she has not been following any physician/PCP with the last 15 years. She is not sure if she was ever diagnosed with CKD. In view of the patient's diabetes mellitus the patient most likely has a diabetes mellitus induced CKD stage IV. The patient also reports increased use of ibuprofen at home for pain. This can also cause renal damage. Advised the patient to avoid over the counter in NSAIDS. The most likely cause of the patient's ASHELY on CKD is renal tubular stasis in view of the patient's congestive heart failure. FENA on 03/28/25 was 0.2% most likely due to prerenal ASHELY. Ordered urine lytes and urine protein to check for protein urea and urinary protein to creatinine ratio. Increased the dose of Lasix from 40 b.i.d. to 40 t.i.d.. Recommend strict input and output monitoring. Recommend Jardiance in view of the patient's underlying CKD. We will continue to monitor the patient's renal function test closely. Avoid nephrotoxic drugs such as NSAIDs , CAMRYN inhibitors and ARDS. Acute hypoxemic respiratory failure Most likely secondary to underlying congestive heart failure with a preserved ejection fraction Pulmonary hypertension Obstructive sleep apnea Obesity hyperventilation syndrome Patient currently on high-flow oxygen via nasal cannula. Receiving IV antibiotics and IV methylprednisolone. The on-call head porter Dr. Noriega is following the patient. We will benefit from pulmonology consultation, PFTs. NSTEMI Patient was initially treated with IV heparin Currently on IV aspirin 81 mg p.o. daily, atorvastatin 80 mg p.o. daily. Continue management per the Cardiology team and logging supervisor team. Atrial fibrillation with rapid ventricular rate Currently rate controlled. On Eliquis for anticoagulation. Continue management per Cardiology recommendation. Diabetes mellitus Patient on insulin-hyperglycemia hypoglycemia protocol. CODE STATUS: Full code DVT prophylaxis: Eliquis Disposition: The patient most likely has a underlying CKD. Continue medical management. We will continue to monitor the patient's renal function test and urine lytes and manage accordingly. Robby Oden MD Internal Medicine Resident, PGY-3 Nephrology attending: the patient was seen and exmained with the resident. agree with above. She has edema of the lower extremities. obese built. Likely to have YOMAIRA / Pulmonary hypertension and right sided overload. diuretics should be approached cautiously to avoid emptying the left side relatively more than the right side. noted the vascular studies in the [place], echocardiogram reports. Kody Vieyra MD nephrology Date of Service: Mar 31, 2025 Billing Provider: KODY VIEYRA MD,ROBBY MEJIA, [facility] Mar 31, 2025 11:58 KODY VIEYRA MD Mar 31, 2025 18:12
--- NOTE | 2025-03-31 12:54 | CONSULTATION REPORT - RESIDENT ---
Consult Providers to CC Resident Creating Document: JOSE FIERRO RES History of Present Illness Reason for Admit\Complaint: ARF with CXR findings on requrining high flow oxygen supply History of Present Illness A 59 years old female with no significant past medical history recorded due to the poor compliance in the health care follow up presented with the acute hypoxemic respiratory failure with possible T2MI w/ U/L acute on chronic CHFpEF 60-65% requested for the pulmonary medicine consultation this morning. Patient is currently on the High flow NC oxygen supply with FiO2 90% to maintain SpO2 91% with clinical feature of acute on chronic pulmonary edema at that moment. Allergies: Coded Allergies: Antihistamines - Alkylamine (Verified Adverse Reaction, Severe, VOMITING, 03/28/25) VOMITING codeine (Verified Adverse Reaction, Mild, NAUSEA, 03/28/25) Past Medical History Past Medical History No significant record for the past medical history Past Surgical History Surgical History Comment Bilateral shoulder surgeries and neck surgery 15 years Appendicectomy ROS ROS ROS were reviewed Exam Vitals: Vital Signs Date Time Temp Pulse Resp B/P (MAP) Pulse Ox O2 Delivery O2 Flow Rate FiO2 03/31/25 11:42 92 20 91 Hi-Flow+ 25 90 03/31/25 03:00 113/60 (77) 03/31/25 02:00 98.0 General: General: Well alert, well oriented, not confused, not agitated, not in acute distress, well cooperated during the physical. HEENT: HEENT: Conjunctive are pink, sclerae clear, no icterus, pupil is equal in both sides, reactive to light, no ear discharge, no pharyngeal erythema or an edema, mouth and lips are moist. Neck: Neck: Supple, no JVD, no lymphadenopathy and thyromegaly. Chest: Lungs: Equal air entry on both lungs, with bilateral fine basal crackles were noted. Cardiovascular: Heart: S1-S2 regular irregular rhythm and, regular rate, no gallops, no rubs, no murmurs Abdomen: Abdomen:Central obesity from the Obesity. No visible peristalsis, Bowel sounds present on auscultation, soft, nontender, no guarding, no rigidity Extremities: Extremities: No obvious deformities, no pitting edema bilaterally, capillary refill intact, able to wiggle toes both sides, peripheral pulsations are intact on both sides. Noted for the right great toe wound secured with the dressing. Central Nervous System: MEDICAL ONCOLOGIST: No focal neurological deficits, no motor and sensory weakness in all 4 extremities, could move all 4 extremities Musculoskeletal: Musculoskeletal: No joint swelling, deformities, inflammations, and no scoliosis and back tenderness Skin: Skin: No active skin lesions and rashes Diagnostic Data Last Recorded Lab Results: 03/31/25 0646 03/31/25 0646 Diagnostic Data: Laboratory Tests Test 03/28/25 12:55 03/29/25 06:53 D-Dimer 1.96 MG/L FEU (0-0.50) H D-Dimer Comment APTT (Heparin Protocol) 53 SECONDS (45-60) Coagulation Comments Additional Plan # Acute on chronic hypoxic respiratory failure 2/2 # Acute on Chronic CHFpEF 60-65%, NYHA Class IV, and AHA stage C leads to T2MI # Obesity Class 4 obesity, BMI 46 with hypoventilation syndrome # YOMAIRA on Cpap -Pt is maintaining Spo2 91% on High flow oxygenation with NC supply. -Imaging CXR were reviewed IMPRESSION: 1. Scattered reticular opacities may reflect [id number] pulmonary edema versus atypical pneumonia. 2. Right lower lobe pneumonia not excluded. 3. Mild cardiomegaly. -Reflecting the features of acute on chronic CHFpEF pictures on the evidence of clinical sings and symptoms and imaging. -We recommended to continue or to consider the updosage of the current IV lasix/ diuresis therapy in the setting of CHF exacerbation. Her age, serum creatinine/ renal function and EF on echo is allowed to increase the diuresis therapy at that moment. -Stable vitals with WNL White counts, and procalcitonin with no clinical signs of pulmonary parenchyma and respiratory tract infections should exclude the possible pneumonia at that moment. -Please continue the GDMT for possible diastolic components of the CHFpEF exacerbation, and to control the heart rate as much as possible for better oxygenation. # Possible chronic Afib with previous Hx -Cardiology is on board and please continue the rate control meds appropriately. # T2DM # HTN # HLD -Recommend the risk factor modification with lifestyle and medication compliance. -continue as per primary management team's plan # ASHELY mostly from pre renal-renal tublar stasis on CKD stage 4 2/2 uncontrolled diabetes nephropathy -Nephrology is on board -please continue appropriately Dispo: Recommended to increase the diuresis therapy for hypoxic respiratory failure from her comobordities, continue oxygenation monitoring, appreciate for the pulmonary medicine consultation, and we are welcome to the further discussion and questions regarding patient's pulmonary care. Resident MD attestation: Patient was seen, examined and discussed with pulmonary and critical care attending MD, Dr. Yisel FIERRO MD Internal Medicine Resident, PGY3 [facility] Date of Service: Mar 31, 2025 Billing Provider: RAFA KAMINSKI MD, TIN, RES Mar 31, 2025 12:54
[2025-03-31 13:30] LABS: CREATININE,URINE RANDOM 28.0 MG/DL; TOTAL PROTEIN,URINE RANDOM 15.0 MG/DL
[2025-03-31 14:23] LABS: UA EOSINOPHILS NO EOS /HPF
--- NOTE | 2025-03-31 15:24 | PROGRESS NOTE- Residence ---
Progress Note - Resident Providers to CC Resident Creating Document: MARÍTN VASQUEZ, GHANSHYAM ~ Central Line/PICC still needed: N\A Davis-Non Protocol Davis Indications Met/Not Met: F/C Indications Not Met Antibiotic Timeout Antibiotic Ordered?: Yes Subjective Patient was seen and examined at bedside. She continues to require high-flow oxygen via nasal cannula and CPAP at night. She desaturates rapidly without the oxygen or even with slight exertion. No acute symptoms overnight. Objective Vital Signs Date Time Temp Pulse Resp B/P (MAP) Pulse Ox O2 Delivery O2 Flow Rate FiO2 03/31/25 11:42 92 20 91 Hi-Flow+ 25 90 03/31/25 03:00 113/60 (77) 03/31/25 02:00 98.0 Result Diagram: 03/31/2546 03/31/25 0646 General: Awake, oriented to person, place and time, morbidly obese HEENT: Conjunctive are pink, sclerae clear, no icterus, pupil is equal in both sides, reactive to light, no ear discharge, no pharyngeal erythema or an edema. Neck: Supple, no JVD, no lymphadenopathy and thyromegaly. Chest: Decreased air entry noted both lungs, bibasilar fine Creps heard. Cardiovascular: S1-S2 heard, irregular rhythm, normal rate, no murmurs or rubs heard Abdomen: Abdominal anasarca noted, No visible peristalsis, Bowel sounds present on auscultation, soft, no tenderness, no guarding, no rigidity Extremities: Bilateral lower extremity chronic venous stasis noted, right great toe with foul-smelling discharging ulcer noted which is bandaged, the bandages look clean and dry. right lower extremity appeared erythematous and warm to touch, no tenderness noted. Left lower extremity edematous, feeble pulses noted in bilateral lower extremities Neurologic: Mental status: alert and conscious, oriented to place, person and time, preserved memory, normal speech. Cranial nerves I-XII: Normal. Motor system: Preserved power, coordination, no evidenced involuntary movements, strength in lower extremities 3/5 Sensory system: Preserved temperature, pain and vibration sensation. 2+ deep tendon reflexes in biceps, triceps, quadriceps. Negative Babinski. Cerebellar: No nystagmus, dysdiadochokinesia, normal [id number] testing. Musculoskeletal: No joint swelling, deformities, inflammations, and no scoliosis and back tenderness Skin: Warm and dry. Dry oral mucosa. Right arm small a skin abrasion noted, left arm bruises noted Coagulation Studies Laboratory Tests Test 03/28/25 12:55 03/29/25 06:53 D-Dimer 1.96 MG/L FEU (0-0.50) H D-Dimer Comment APTT (Heparin Protocol) 53 SECONDS (45-60) Coagulation Comments Plan Plan Assessment: This is a 59-year-old female with no prior medical contact and self neglect, transferred from [facility] in view of shortness of Breath and raising troponin. She is currently being treated for acute hypoxemic respiratory failure secondary to acute exacerbation of heart failure with preserved ejection fraction, started on GDM T , new onset atrial fibrillation and a type 2 NH due to heart failure. We will during amiodarone loading dose transitioning to oral pill with Eliquis to control her AFib. We stopped her dobutamine drip, we will continue to diurese her. Nephrology is on board in view of worsening ASHELY. Plan: 1. Acute hypoxemic respiratory failure Secondary to acute on chronic congestive heart failure with preserved ejection fraction 60-65%, obesity hypoventilation syndrome NYHA class IV, AHA stage C Patient is currently requiring high-flow nasal cannula, saturating well. CPAP at night. Echocardiogram reported EF of 60-65%, normal systolic function, RVSP elevated at 44 mmHg Patient's proBNP elevated 3823 Chest x-ray shows pulmonary congestion with pleural effusion. Plan Stopped on dobutamine drip in view of worsening ASHELY. Increase the dose of Lasix to 40 mg IV t.i.d.. She is currently in a positive balance even though she was fluid restricted and got only 900 mL yesterday. She clearly looks fluid overloaded. We will continue GDM T with Jardiance 10 Continue Solu-Medrol 62.5 IV t.i.d.., DuoNeb q.4h scheduled, incentive spirometry. Strict input& output monitoring, daily weights. Dr. Noriega and Nephrology on board 2. Type 2 troponinemia-demand ischemia Patient given complaints of shortness of Breath and elevated trops, which down trended. Likely due to acute exacerbation CHF, new onset atrial fibrillation, obesity hypoventilation syndrome 3. New onset atrial fibrillation with controlled ventricular rate Yfn Vasc: 3, has bled score:2 We will started with the amiodarone loading dose of 150 mg transitioning to p.o.. Continue Eliquis 5 mg b.i.d.. Today her heart rate was in 110s, irregular after stopping carvedilol. We could not do a rate control medication or digoxin on her since we need the blood pressures to diurese her well. 4. Newly diagnosed uncontrolled type 2 diabetes mellitus HGB A1c elevated at 9.7% Educated the patient about her new diagnosis, educated on diet and lifestyle modification. Her blood sugars were in the range of 4 100s today. Increased her insulin requirements to Lantus 25 b.i.d., insulin lispro 10 with meals and a lispro high dose sliding scale. She received lispro 30 after breakfast, continue monitoring her levels. 5. Right great toe ulcer, most likely diabetic foot ulcer with cellulitis Currently does not meet SIRS criteria. WBC, inflammatory markers within normal range Vascular ultrasound ruled out any venous insufficiency,dvt Awaiting blood cultures. Continue the patient on IV vancomycin(day 4) and ceftriaxone(day 4) with probiotics Wound care consult in place 6. ASHELY likely prerenal due to vasomotor nephropathy FENA less than 0.2% indicating prerenal Patient's creatinine worsened to 2.7 today with dobutamine drip. Renal ultrasound was essentially normal. No fluids to be administered. Continue to monitor CMP 7. Elevated TSH and T3 TSH elevated 9.71 T3 and free T4 elevated, most likely due to ongoing critical condition. 8. Morbid obesity BMI of 44 kg/meter squared Would recommend diet control and possible surgical options 9. Possible sleep apnea Significant morbid obesity CPAP at night, outpatient sleep study. Code Status: Full code DVT Prophylaxis: Eliquis 5 mg b.i.d. Analgesia/Sedation: Dilaudid Lines/Tubes: PIV Nutrition: 75 g carb controlled, heart healthy. PT:yes Prognosis: Guarded Disposition: assess patient's fluid status tomorrow, physical therapy to work with the patient. Critical care time: We spent a total of 35 minutes with the patient in view of her current condition and her comorbidities. The above note has been reviewed and supervised by the senior resident PGY 2/PGY 3. Patient was seen and examined and discussed with attending physician Martín Vasquez MD Internal medicine resident,PGY-1 Date of Service: Mar 31, 2025 Billing Provider: DARYL SCHWARTZ MD, SHIVANI, RES Mar 31, 2025 15:24
[2025-03-31] MEDS: amiodarone 150mg/dext, iso-os 100 ML IV ONE (16:16)
[2025-03-31] MEDS: ipratropium/albuterol 3ml nebule NEB SCH (17:16)
--- NOTE | 2025-03-31 17:17 | PROGRESS NOTE ---
Progress Note Cardiology Providers to CC ~ Subjective Subjective Patient seen and examined this morning. Noted discontinuation of dobutamine. Objective Result Diagram: 03/31/2546 03/31/2546 Objective General: Normal body habitus, no acute distress, HEENT: Sclerae clear, PERRL, gums without lesions or bleeding, oropharynx clear without erythema or exudate. Neck: Supple without enlargement of the thyroid, or lymphadenopathy, Chest: Normal size and shape, no tenderness, nonlabored breathing, Breath sounds diminished bibasilar Heart: Irregularly irregular variable S1. Abdomen: Soft, nontender, no organomegaly, bowel sounds present. Extremities: Bilateral ankle swelling with cellulitis. Coagulation Studies Malcolm Laboratory Tests Test 03/28/25 12:55 03/29/25 06:53 D-Dimer 1.96 MG/L FEU (0-0.50) H D-Dimer Comment APTT (Heparin Protocol) 53 SECONDS (45-60) Coagulation Comments Problem\Assessment\Plan Additional Plan 1. 59-year-old female with elevated troponin in the setting of multiple comorbidities respiratory failure: Being managed by primary team. 2. History of atrial fibrillation. On amiodarone carvedilol and anticoagulation, rate controlled. Echocardiogram ejection fraction normal to 70% with no wall motion abnormalities. 2. Type 2 troponinemia-demand ischemia Likely due to new onset atrial fibrillation, obesity hypoventilation syndrome Consider myocardial perfusion scan when stable 5. Diabetes, hypertension, dyslipidemia with low HDL: HGB A1c elevated at 9.7% recommend keep LDL less than 55 mg %, systolic blood pressure less than 130 mm of mercury and hemoglobin is A1c less than 7%. 7. ASHELY on CKD BUN of fifty-seven and creatinine of 2.76, recommend decreasing diuretics 8. Other comorbidities include: Hypothyroidism, morbid obesity, sleep apnea recommend weight loss and evaluation for sleep apnea on CPAP is necessary. TAMERA OSBORNE MD Mar 31, 2025 17:17
[2025-04-01] VITALS (21 sets, daily range): BP systolic 98–110; BP diastolic 54–62; PULSE 71–102; RESP 15–22; TEMP 96.5–98; O2SAT 88–94
[2025-04-01 02:50] LABS: MEAN PLATELET VOLUME 10.3 FL (7.4-10.4); RED CELL DISTRIBUTION WIDTH 18.9 % (11.5-14.5)
[2025-04-01 03:04] LABS: CREATININE 2.68 MG/DL (0.40-0.90); TOTAL CARBON DIOXIDE 27.1 MMOL/L (24-32); eCRCL 26 ML/MIN; eGFR 18 ML/MIN
[2025-04-01] MEDS: VANCOMYCIN LEVEL IV ONE (03:08)
[2025-04-01] MEDS: bisacodyl 10mg suppository rectal RC STA (11:11)
--- NOTE | 2025-04-01 11:22 | PROGRESS NOTE- Residence ---
Progress Note - Resident Providers to CC Resident Creating Document: ROBBY ODENTIK, RES ~ Central Line/PICC still needed: No Davis-Non Protocol Davis Indications Met/Not Met: F/C Indications Not Met Antibiotic Timeout Antibiotic Ordered?: Yes Subjective Patient seen and examined at the bedside today. Continues to be on high-flow oxygen but reports that she is feeling better. She stated that she did not have a bowel movement since admission but has been passing gas. Denied any nausea or vomiting. Denied any decreased appetite. Denied any abdominal pain. No other concerns or complaints reported. No acute overnight events reported. Objective Vital Signs Date Time Temp Pulse Resp B/P (MAP) Pulse Ox O2 Delivery O2 Flow Rate FiO2 04/01/25 08:05 85 17 High Flow Nasal Cannula 25.0 90 04/01/25 08:03 92 04/01/25 02:00 96.5 108/54 (72) Result Diagram: 04/01/25 0240 04/01/25 0240 General: Awake and Alert, obese female. No acute distress. HEENT: Conjunctiva pink, Sclera clear, Mucus Membranes moist. Neck: Supple without masses and tenderness. Resp: On high-flow oxygen via nasal cannula. Decreased breath sounds bilaterally, more decreased on the right lung hayden. Mild crackles present in bibasilar region. Heart: Irregular rate and rhythm. S1-S2 heard. No murmurs present. Abdomen: Soft and non tender no organomegaly Extremities: Bilateral chronic venous stasis noted. 2+ edema noted. Right foot under dressing. Skin: Warm and Dry. Neurology: Patient oriented to time place and person. Cranial nerves 2-12 intact. No focal motor or sensory deficits noted. Coagulation Studies Laboratory Tests Test 03/28/25 12:55 03/29/25 06:53 D-Dimer 1.96 MG/L FEU (0-0.50) H D-Dimer Comment APTT (Heparin Protocol) 53 SECONDS (45-60) Coagulation Comments Advance Care Planning Advanced Care plannin - 30 Minutes Assessment Assessment 59 years old female with past medical history of diabetes mellitus, noncompliance is admitted in the hospital for evaluation and management of acute hypoxemic respiratory failure secondary to acute exacerbation congestive heart failure seizure ejection fraction, atrial fibrillation with RVR. The Nephrology team has been consulted in view of the patient's ASHELY. Plan Plan ASHELY on CKD stage 4 CKD most likely secondary to underlying diabetes mellitus The most likely cause of the patient's acute kidney injury in decreased renal perfusion in his setting of congestive heart failure with preserved ejection fraction. The patient is started on IV Lasix 40 mg t.i.d.. Has been diuresing well and has a negative fluid balance of 1.3 L in the last 24 hours. The patient is creatinine has a started to downtrend, 2.68 today. Continue to monitor renal function closely. The patient's urine protein to creatinine ratio is 0.5. Moderate protein noted. Continue Jardiance in view of the patient's CKD. Avoid nephrotoxic drugs such as NSIP ideas, CAMRYN inhibitors and ARBs. Continue strict input and output monitoring. Acute hypoxemic respiratory failure Most likely secondary to underlying congestive heart failure with a preserved ejection fraction Pulmonary hypertension Obstructive sleep apnea Obesity hyperventilation syndrome Patient currently on high-flow oxygen via nasal cannula. Receiving IV antibiotics and IV methylprednisolone. The on-call acute care surgeon Dr. Noriega is following the patient. On-call cigarette vendor Dr. Morillo has been consulted. Appreciate recommendations. Type 2 WA NSTEMI ruled out. As per the Cardiology recommendation the patient's Troponinemia was most likely secondary to demand ischemia. Currently on IV aspirin 81 mg p.o. daily, atorvastatin 80 mg p.o. daily. Continue management per the Cardiology team and junior media buyer team. Atrial fibrillation with rapid ventricular rate Currently rate controlled. On Eliquis for anticoagulation. Was started on p.o. amiodarone. Carvedilol held in view of the patient's hypotension. Continue telemetry monitoring. Continue management per Cardiology recommendation. Robby Oden MD Internal Medicine Resident, PGY-3 Nephrology attending: the patient is responding well to lasix for her anasarca. she had good BMs too. She does not have overt proteinuria. With her histoyr of HFpEF, Dm 2, it may be worthwhile to consider SGLT2i in her management for better health benefits. continue renal diet. Kody Vieyra MD Date of Service: Apr 01, 2025 Billing Provider: KODY VIEYRA MD, SURYA PRATIK, RES Apr 01, 2025 11:22 KODY VIEYRA MD Apr 01, 2025 14:12
[2025-04-01] MEDS: ipratropium/albuterol 3ml nebule NEB SCH (12:19)
[2025-04-01] MEDS: insulin glargine (Lantus) pen - multi-dose SQ ONE (13:21)
[2025-04-01] MEDS: vancomycin inj. 750 MG in normal saline 250ml IV soln 250 ML IV SCH (16:15)
--- NOTE | 2025-04-01 17:13 | PROGRESS NOTE ---
Progress Note Cardiology Providers to CC ~ Subjective Subjective Patient seen and examined this evening. Her friend at bedside. Patient says she is feeling better in terms of breathing. No chest pain. AFib rate controlled. Objective Result Diagram: 04/01/2523904/01/25239 Objective General: Conscious alert oriented Neck: Supple without enlargement of the thyroid, or lymphadenopathy, Chest: Normal size and shape, no tenderness, nonlabored breathing, Breath sounds diminished bibasilar Heart: Irregularly irregular variable S1 Abdomen: Soft, nontender, no organomegaly, bowel sounds present. Extremities: One to 2+ bilateral ankle swelling with cellulitis Coagulation Studies Laboratory Tests Test 03/28/25 12:55 03/29/25 06:53 D-Dimer 1.96 MG/L FEU (0-0.50) H D-Dimer Comment APTT (Heparin Protocol) 53 SECONDS (45-60) Coagulation Comments Problem\Assessment\Plan Additional Plan . 59-year-old female with elevated troponin in the setting of multiple comorbidities respiratory failure: Being managed by primary team. 2. History of atrial fibrillation. On amiodarone carvedilol and anticoagulation, rate controlled. Echocardiogram ejection fraction normal to 70% with no wall motion abnormalities. 2. Type 2 troponinemia-demand ischemia Likely due to new onset atrial fibrillation, obesity hypoventilation syndrome Consider myocardial perfusion scan when stable 5. Diabetes, hypertension, dyslipidemia with low HDL: HGB A1c elevated at 9.7% recommend keep LDL less than 55 mg %, systolic blood pressure less than 130 mm of mercury and hemoglobin is A1c less than 7%. 7. ASHELY on CKD BUN of 70 creatinine 7.68 on 04/01. Noted Nephrology Dr. Ramírez input 8. Other comorbidities include: Hypothyroidism, morbid obesity, sleep apnea recommend weight loss and evaluation for sleep apnea on CPAP is necessary. TAMERA OSBORNE MD Apr 01, 2025 17:13
--- NOTE | 2025-04-01 17:33 | PROGRESS NOTE- Residence ---
Progress Note - Resident Providers to CC Resident Creating Document: MARTÍN VASQUEZ, GHANSHYAM ~ Central Line/PICC still needed: N\A Davis-Non Protocol Davis Indications Met/Not Met: F/C Indications Not Met Antibiotic Timeout Antibiotic Ordered?: Yes Subjective Patient seen and examined at the bedside today. She continues to be on high- flow oxygen in the morning and CPAP at night. Desaturates rapidly without the high-flow oxygen. Her lung sounds are better than yesterday. She continues to have very high blood sugars even after increasing the insulin dose. We will further increase the insulin dose today. She has not had a bowel movement since 10 days, give her suppository and started on Colace and MiraLax. No acute symptoms overnight. Objective Vital Signs Date Time Temp Pulse Resp B/P (MAP) Pulse Ox O2 Delivery O2 Flow Rate FiO2 04/01/25 14:51 87 17 High Flow Nasal Cannula 25.0 90 04/01/25 14:45 92 04/01/25 02:00 96.5 108/54 (72) Result Diagram: 04/01/25 0240 04/01/25 0240 General: Awake, oriented to person, place and time, morbidly obese HEENT: Conjunctive are pink, sclerae clear, no icterus, pupil is equal in both sides, reactive to light, no ear discharge, no pharyngeal erythema or an edema. Neck: Supple, no JVD, no lymphadenopathy and thyromegaly. Chest: Decreased air entry noted both lungs, bibasilar fine Creps heard. Cardiovascular: S1-S2 heard, irregular rhythm, normal rate, no murmurs or rubs heard Abdomen: Abdominal anasarca noted, No visible peristalsis, Bowel sounds present on auscultation, soft, no tenderness, no guarding, no rigidity Extremities: Bilateral lower extremity chronic venous stasis noted, right great toe with foul-smelling discharging ulcer noted which is bandaged, the bandages look clean and dry. right lower extremity appeared erythematous and warm to touch, no tenderness noted. Left lower extremity edematous, feeble pulses noted in bilateral lower extremities Neurologic: Mental status: alert and conscious, oriented to place, person and time, preserved memory, normal speech. Cranial nerves I-XII: Normal. Motor system: Preserved power, coordination, no evidenced involuntary movements, strength in lower extremities 3/5 Sensory system: Preserved temperature, pain and vibration sensation. 2+ deep tendon reflexes in biceps, triceps, quadriceps. Negative Babinski. Cerebellar: No nystagmus, dysdiadochokinesia, normal [id number] testing. Musculoskeletal: No joint swelling, deformities, inflammations, and no scoliosis and back tenderness Skin: Warm and dry. Dry oral mucosa. Right arm small a skin abrasion noted, left arm bruises noted Coagulation Studies Laboratory Tests Test 03/28/25 12:55 03/29/25 06:53 D-Dimer 1.96 MG/L FEU (0-0.50) H D-Dimer Comment APTT (Heparin Protocol) 53 SECONDS (45-60) Coagulation Comments Assessment Assessment This is a 59-year-old female with no prior medical contact and self neglect, transferred from [facility] in view of shortness of Breath and raising troponin. She is currently being treated for acute hypoxemic respiratory failure secondary to acute exacerbation of heart failure with preserved ejection fraction, started on GDM T , new onset atrial fibrillation controlled with amiodarone and a type 2 CA due to heart failure. She continues to require high doses of insulin to maintain her blood sugars. Decrease the dose of steroids today. Plan Plan 1. Acute hypoxemic respiratory failure Secondary to acute on chronic congestive heart failure with preserved ejection fraction 60-65%, obesity hypoventilation syndrome NYHA class IV, AHA stage C Patient is currently requiring high-flow nasal cannula, saturating well. CPAP at night. Echocardiogram reported EF of 60-65%, normal systolic function, RVSP elevated at 44 mmHg Patient's proBNP elevated 3823 Chest x-ray shows pulmonary congestion with pleural effusion. Plan Currently on Lasix 40 mg IV t.i.d., diuresing well with an output of 2600, negative balance of 1300 Jardiance 10 stopped in view of worsening ASHELY. The dose of Solu-Medrol reduced to 40 b.i.d., DuoNeb q.6h scheduled in view of hyperglycemia Continue incentive spirometry. Strict input& output monitoring, daily weights. Dr. Noriega and Nephrology on board 2. Type 2 troponinemia-demand ischemia Patient given complaints of shortness of Breath and elevated trops, which down trended. Likely due to acute exacerbation CHF, new onset atrial fibrillation, obesity hypoventilation syndrome 3. New onset atrial fibrillation with controlled ventricular rate Yfn Vasc: 3, has bled score:2 Patient had a well controlled with amiodarone 40 mg p.o. b.i.d., We will continue the dose for now and plan to reduce it later. Continue Eliquis 5 mg p.o. b.i.d. 4. Newly diagnosed uncontrolled type 2 diabetes mellitus HGB A1c elevated at 9.7% Educated the patient about her new diagnosis, educated on diet and lifestyle modification. Her blood sugars were in the range of 400s today. Increased her insulin requirements to Lantus 35 b.i.d., insulin lispro 15 with meals and a lispro high dose sliding scale. She received lispro 30 after breakfast, continue monitoring her levels. 5. Right great toe ulcer, most likely diabetic foot ulcer with cellulitis Currently does not meet SIRS criteria. WBC, inflammatory markers within normal range Vascular ultrasound ruled out any venous insufficiency,dvt Blood cultures negative after 4 days Continue the patient on IV vancomycin(day 5) and ceftriaxone(day 5) with probiotics Added metronidazole 500 mg to cover anaerobes. Wound care consult in place 6. ASHELY likely prerenal due to vasomotor nephropathy FENA less than 0.2% indicating prerenal Creatinine 2.68 today Renal ultrasound was essentially normal. No fluids to be administered. Continue to monitor CMP 7. Elevated TSH and T3 TSH elevated 9.71 T3 and free T4 elevated, most likely due to ongoing critical condition. 8. Morbid obesity BMI of 44 kg/meter squared Would recommend diet control and possible surgical options 9. Possible sleep apnea Significant morbid obesity CPAP at night, outpatient sleep study. Code Status: Full code DVT Prophylaxis: Eliquis 5 mg b.i.d. Analgesia/Sedation: Dilaudid Lines/Tubes: PIV Nutrition: 75 g carb controlled, heart healthy. PT:yes Prognosis: Guarded Disposition: Physical therapy work with the patient and housing case manager to find rehab. Critical care time: We spent a total of 35 minutes with the patient in view of her current condition and her comorbidities. The above note has been reviewed and supervised by the senior resident PGY 2/PGY 3. Patient was seen and examined and discussed with attending physician Martín Vasquez MD Internal medicine resident,PGY-1 Date of Service: Apr 01, 2025 Billing Provider: DARYL SCHWARTZ MD, SHIVANI, RES Apr 01, 2025 17:33
[2025-04-01] MEDS: metroNIDAZOLE-Flagyl 500mg/NS 100 ML IV SCH (20:32)
[2025-04-01] MEDS: methylPREDNISolone sod succ/PF 40mg inj. IV SCH (20:33)
[2025-04-01] MEDS: insulin glargine (Lantus) pen - multi-dose SQ SCH (21:09)
[2025-04-01] MEDS: INSULIN LISPRO 100 UNIT/ML INSULN.PEN MULTI-DOSE SQ SCH (21:11)
[2025-04-02] VITALS (20 sets, daily range): BP systolic 102–121; BP diastolic 54–65; PULSE 84–105; RESP 11–22; TEMP 97–98.4; O2SAT 90–97
[2025-04-02] MEDS: INSULIN LISPRO 100 UNIT/ML INSULN.PEN MULTI-DOSE SQ ONE ×2 (02:25→11:16)
[2025-04-02 08:01] LABS: MEAN PLATELET VOLUME 10.7 FL (7.4-10.4); RED CELL DISTRIBUTION WIDTH 18.9 % (11.5-14.5)
[2025-04-02 08:31] LABS: CREATININE 2.51 MG/DL (0.40-0.90); PHOSPHORUS 4.4 MG/DL (2.3-4.5); TOTAL CARBON DIOXIDE 27.0 MMOL/L (24-32); eCRCL 28 ML/MIN; eGFR 20 ML/MIN
[2025-04-02] MEDS: EMPAGLIFLOZIN 10 MG TABLET PO SCH (11:11)
[2025-04-02] MEDS: insulin glargine (Lantus) pen - multi-dose SQ ONE (11:17)
[2025-04-02] MEDS: INSULIN LISPRO 100 UNIT/ML INSULN.PEN MULTI-DOSE SQ SCH (12:13)
--- NOTE | 2025-04-02 16:57 | PROGRESS NOTE ---
Progress Note Cardiology Providers to CC ~ Subjective Subjective Patient seen and examined this evening. Her brother was visiting her today. Denies chest pain Objective Result Diagram: 04/02/25 0641 04/02/25 0641 Objective General: Conscious alert oriented. Neck: Supple without enlargement of the thyroid, or lymphadenopathy, Chest: Normal size and shape, no tenderness, nonlabored breathing, Breath sounds diminished bibasilarly Heart: Irregularly irregular variable S1 Abdomen: Soft, nontender, no organomegaly, bowel sounds present. Extremities: No edema cyanosis or clubbing. Coagulation Studies Laboratory Tests Test 03/28/25 12:55 03/29/25 06:53 D-Dimer 1.96 MG/L FEU (0-0.50) H D-Dimer Comment APTT (Heparin Protocol) 53 SECONDS (45-60) Coagulation Comments Problem\Assessment\Plan Additional Plan . 59-year-old female with elevated troponin in the setting of multiple comorbidities respiratory failure: Being managed by primary team. 2. History of atrial fibrillation. On amiodarone carvedilol and anticoagulation, rate controlled. Echocardiogram ejection fraction normal to 70% with no wall motion abnormalities. 2. Type 2 troponinemia-demand ischemia Likely due to new onset atrial fibrillation, obesity hypoventilation syndrome Consider myocardial perfusion scan when stable 5. Diabetes, hypertension, dyslipidemia with low HDL: HGB A1c elevated at 9.7% recommend keep LDL less than 55 mg %, systolic blood pressure less than 130 mm of mercury and hemoglobin is A1c less than 7%. 7. ASHELY on CKD BUN of 80 and creatinine of 2.51. Noted Nephrology Dr. Ramírez input 8. Other comorbidities include: Hypothyroidism, morbid obesity, sleep apnea recommend weight loss and evaluation for sleep apnea on CPAP is necessary. TAMERA OSBORNE MD Apr 02, 2025 16:57
--- NOTE | 2025-04-02 17:27 | PROGRESS NOTE- Residence ---
Progress Note - Resident Providers to CC Resident Creating Document: MARTÍN VASQUEZ, GHANSHYAM ~ Central Line/PICC still needed: N\A Davis-Non Protocol Davis Indications Met/Not Met: F/C Indications Not Met Antibiotic Timeout Antibiotic Ordered?: Yes Subjective Patient seen and examined at the bedside today. She continues to be on high- flow oxygen in the morning and CPAP at night. Desaturates rapidly without the high-flow oxygen. Her lung sounds are better than yesterday. She continues to have very high blood sugars even after increasing the insulin dose. We will further increase the insulin dose today. She had a bowel movement yesterday after suppository. No acute symptoms overnight. Objective Vital Signs Date Time Temp Pulse Resp B/P (MAP) Pulse Ox O2 Delivery O2 Flow Rate FiO2 04/02/25 15:00 97.0 87 14 121/59 (79) 90 High Flow Nasal Cannula 25.0 90 Result Diagram: 04/02/2564004/02/25640 General: Awake, oriented to person, place and time, morbidly obese HEENT: Conjunctive are pink, sclerae clear, no icterus, pupil is equal in both sides, reactive to light, no ear discharge, no pharyngeal erythema or an edema. Neck: Supple, no JVD, no lymphadenopathy and thyromegaly. Chest: Decreased air entry noted both lungs, bibasilar fine Creps heard. Cardiovascular: S1-S2 heard, irregular rhythm, normal rate, no murmurs or rubs heard Abdomen: Abdominal anasarca noted, No visible peristalsis, Bowel sounds present on auscultation, soft, no tenderness, no guarding, no rigidity Extremities: Bilateral lower extremity chronic venous stasis noted, right great toe with foul-smelling discharging ulcer noted which is bandaged, the bandages look clean and dry. right lower extremity appeared erythematous and warm to touch, no tenderness noted. Left lower extremity edematous, feeble pulses noted in bilateral lower extremities Neurologic: Mental status: alert and conscious, oriented to place, person and time, preserved memory, normal speech. Cranial nerves I-XII: Normal. Motor system: Preserved power, coordination, no evidenced involuntary movements, strength in lower extremities 3/5 Sensory system: Preserved temperature, pain and vibration sensation. 2+ deep tendon reflexes in biceps, triceps, quadriceps. Negative Babinski. Cerebellar: No nystagmus, dysdiadochokinesia, normal [id number] testing. Musculoskeletal: No joint swelling, deformities, inflammations, and no scoliosis and back tenderness Skin: Warm and dry. Dry oral mucosa. Right arm small a skin abrasion noted, left arm bruises noted Coagulation Studies Laboratory Tests Test 03/28/25 12:55 03/29/25 06:53 D-Dimer 1.96 MG/L FEU (0-0.50) H D-Dimer Comment APTT (Heparin Protocol) 53 SECONDS (45-60) Coagulation Comments Assessment Assessment This is a 59-year-old female with no prior medical contact and self neglect, transferred from [facility] in view of shortness of Breath and raising troponin. She is currently being treated for acute hypoxemic respiratory failure secondary to acute exacerbation of heart failure with preserved ejection fraction, started on GDM T , new onset atrial fibrillation controlled with amiodarone and a type 2 FL due to heart failure. She continues to require high doses of insulin to maintain her blood sugars. Physical therapy worked with the today, which was able to stand up from her bed. Plan Plan 1. Acute hypoxemic respiratory failure Secondary to acute on chronic congestive heart failure with preserved ejection fraction 60-65%, obesity hypoventilation syndrome NYHA class IV, AHA stage C Patient is currently requiring high-flow nasal cannula, saturating well. CPAP at night. Echocardiogram reported EF of 60-65%, normal systolic function, RVSP elevated at 44 mmHg Patient's proBNP elevated 3823 Chest x-ray shows pulmonary congestion with pleural effusion. Plan Currently on Lasix 40 mg IV t.i.d., diuresing well with an output of 1500, Continue Jardiance 10 with a part of GDM T. Continue Solu-Medrol reduced to 40 b.i.d., DuoNeb q.6h scheduled and q.2h p.r.n. Continue incentive spirometry. Strict input& output monitoring, daily weights. Dr. Noriega and Nephrology on board 2. Type 2 troponinemia-demand ischemia Patient given complaints of shortness of Breath and elevated trops, which down trended. Likely due to acute exacerbation CHF, new onset atrial fibrillation, obesity hypoventilation syndrome 3. New onset atrial fibrillation with controlled ventricular rate Yfn Vasc: 3, has bled score:2 Patient had a well controlled with amiodarone 40 mg p.o. b.i.d., We will continue the dose for now and plan to reduce it later. Continue Eliquis 5 mg p.o. b.i.d. 4. Newly diagnosed uncontrolled type 2 diabetes mellitus HGB A1c elevated at 9.7% Educated the patient about her new diagnosis, educated on diet and lifestyle modification. Her blood sugars were in the range of 400s today. Increased her insulin requirements to Lantus 45 b.i.d., insulin lispro 30 with every meal 5. Right great toe ulcer, most likely diabetic foot ulcer with cellulitis Currently does not meet SIRS criteria. WBC, inflammatory markers within normal range Vascular ultrasound ruled out any venous insufficiency,dvt Blood cultures negative after 4 days Continue the patient on IV vancomycin(day 6) and ceftriaxone(day 6) with probiotics Added metronidazole 500 mg due to to cover anaerobes. Wound care consult in place 6. ASHELY likely prerenal due to vasomotor nephropathy FENA less than 0.2% indicating prerenal Creatinine 2.68 today Renal ultrasound was essentially normal. No fluids to be administered. Continue to monitor CMP 7. Elevated TSH and T3 TSH elevated 9.71 T3 and free T4 elevated, most likely due to ongoing critical condition. 8. Morbid obesity BMI of 44 kg/meter squared Would recommend diet control and possible surgical options 9. Possible sleep apnea Significant morbid obesity CPAP at night, outpatient sleep study. Code Status: Full code DVT Prophylaxis: Eliquis 5 mg b.i.d. Analgesia/Sedation: Dilaudid Lines/Tubes: PIV Nutrition: 75 g carb controlled, heart healthy. PT:yes Prognosis: Guarded Disposition: Physical therapy work with the patient and bottle caser to find rehab. Critical care time: We spent a total of 35 minutes with the patient in view of her current condition and her comorbidities. The above note has been reviewed and supervised by the senior resident PGY 2/PGY 3. Patient was seen and examined and discussed with attending physician Martín Vasquez MD Internal medicine resident,PGY-1 Date of Service: Apr 02, 2025 Billing Provider: DARYL SCHWARTZ MD, SHIVANI, RES Apr 02, 2025 17:27
--- NOTE | 2025-04-02 19:34 | PROGRESS NOTE ---
Progress Note Dictate Providers to CC ~ Central Line/PICC still needed: No Davis Indications Met/Not Met: F/C Indications Met Antibiotic Ordered?: N/A Subjective Subjective good diuresis. creatinine at 2.5. has chronic lymphedema, brawny of the Le Objective Vitals Vital Signs Date Time Temp Pulse Resp B/P (MAP) Pulse Ox O2 Delivery O2 Flow Rate FiO2 04/02/25 19:00 98.4 84 16 108/65 (79) 90 High Flow Nasal Cannula 25.0 90 Lab Results: 04/02/25 0641 04/02/25 0641 Objective Vital Signs: As above General: obese body habitus, no acute distress. Skin: No rashes, lumps, ulcers, blisters, purpura or petechiae HEENT: Anicteric sclera, RENEE Neck: Supple and nontender without enlargement of the thyroid, or lymphadenopathy. Chest: Normal size and shape, no tenderness, CTA bilaterally Heart: Regular. No jugular venous distention, S1 and S2 heard , no gallop Abdomen: Soft and non tender no organomegaly,BS+ Extremities: chronic lymphedema Neuro: Nonfocal. Coagulation Studies Laboratory Tests Test 03/28/25 12:55 03/29/25 06:53 D-Dimer 1.96 MG/L FEU (0-0.50) H D-Dimer Comment APTT (Heparin Protocol) 53 SECONDS (45-60) Coagulation Comments Advance Care Planning Advanced Care plannin - 30 Minutes Problem\Assessment\Plan Problems/Diagnosis: (1) ASHELY (acute kidney injury) Assessment & Plan: The creatinine is stabilizing. Mostly this appears to be chronic. salt restriction to 2 g per day. fluid restriction to 1.2 liters per day. diuretics being given to reduce the edema of the LE. But the pateint has right heart failure / pulmonary hypertension and aggressive diuresis can cause worsening pre renal azotemia. closely monitored. (2) CKD (chronic kidney disease) stage 4, GFR 15-29 ml/min Assessment & Plan: continue with cautious diuresis and stockings to the LE vs CAMRYN wrap to both lower extremities 12 hours on and 12 hours off. (3) Congestive heart failure Assessment & Plan: stable. Problem Qualifiers (1) Congestive heart failure: Qualified Codes: I50.9 - Heart failure, unspecified JOSEPH VIEYRA MD Apr 02, 2025 19:34
[2025-04-02] MEDS: insulin glargine (Lantus) pen - multi-dose SQ SCH (21:04)
[2025-04-03] VITALS (18 sets, daily range): BP systolic 101–111; BP diastolic 51–66; PULSE 75–108; RESP 11–27; TEMP 96.7–97.8; O2SAT 90–94
[2025-04-03 06:45] LABS: MEAN PLATELET VOLUME 10.3 FL (7.4-10.4); RED CELL DISTRIBUTION WIDTH 18.5 % (11.5-14.5)
[2025-04-03 07:02] LABS: CREATININE 2.44 MG/DL (0.40-0.90); PHOSPHORUS 4.6 MG/DL (2.3-4.5); TOTAL CARBON DIOXIDE 29.6 MMOL/L (24-32); eCRCL 29 ML/MIN; eGFR 20 ML/MIN
[2025-04-03] MEDS: INSULIN LISPRO 100 UNIT/ML INSULN.PEN MULTI-DOSE SQ SCH (08:44)
[2025-04-03] MEDS: HEPARIN DRIP DVT/PE -**PHARMACIST TO DOSE IV ONE (14:30)
--- NOTE | 2025-04-03 14:35 | PROGRESS NOTE- Residence ---
Progress Note - Resident Providers to CC Resident Creating Document: MARTÍN HANSEN, RES ~ Central Line/PICC still needed: N\A Antibiotic Timeout Antibiotic Ordered?: Yes Subjective Patient seen and examined at the bedside today. She continues to be on high- flow oxygen in the morning with intermittent BiPAP and CPAP at night. Desaturates rapidly without the high-flow oxygen. Her blood sugars were finally controlled with 45 Lantus b.i.d. and 30 lispro with every meal. She was supposed to get a CT lungs and a V/Q scan today which could not be fulfilled since she desaturates if she has made to lay flat. No acute symptoms overnight. Colace and MiraLax for her bowel movements. Objective Vital Signs Date Time Temp Pulse Resp B/P (MAP) Pulse Ox O2 Delivery O2 Flow Rate FiO2 04/03/25 11:47 108 18 92 25.0 90 04/03/25 11:00 97.8 104/51 (68) High Flow Nasal Cannula Result Diagram: 04/03/2562404/03/25624 General: Awake, oriented to person, place and time, morbidly obese HEENT: Conjunctive are pink, sclerae clear, no icterus, pupil is equal in both sides, reactive to light, no ear discharge, no pharyngeal erythema or an edema. Neck: Supple, no JVD, no lymphadenopathy and thyromegaly. Chest: Decreased air entry noted both lungs, bibasilar fine Creps heard. Cardiovascular: S1-S2 heard, irregular rhythm, normal rate, no murmurs or rubs heard Abdomen: Abdominal anasarca noted, No visible peristalsis, Bowel sounds present on auscultation, soft, no tenderness, no guarding, no rigidity Extremities: Bilateral lower extremity chronic venous stasis noted, right great toe with ulcer healing, healthy base which is bandaged, the bandages look clean and dry. right lower extremity appeared erythematous and warm to touch, no tenderness noted. Left lower extremity edematous, feeble pulses noted in bilateral lower extremities Neurologic: Mental status: alert and conscious, oriented to place, person and time, preserved memory, normal speech. Cranial nerves I-XII: Normal. Motor system: Preserved power, coordination, no evidenced involuntary movements, strength in lower extremities 3/5 Sensory system: Preserved temperature, pain and vibration sensation. 2+ deep tendon reflexes in biceps, triceps, quadriceps. Negative Babinski. Cerebellar: No nystagmus, dysdiadochokinesia, normal [id number] testing. Musculoskeletal: No joint swelling, deformities, inflammations, and no scoliosis and back tenderness Skin: Warm and dry. Dry oral mucosa. Right arm small a skin abrasion noted, left arm bruises noted Coagulation Studies Laboratory Tests Test 03/28/25 12:55 03/29/25 06:53 D-Dimer 1.96 MG/L FEU (0-0.50) H D-Dimer Comment APTT (Heparin Protocol) 53 SECONDS (45-60) Coagulation Comments Assessment Assessment This is a 59-year-old female with no prior medical contact and self neglect, transferred from [facility] in view of shortness of Breath and raising troponin. She is currently being treated for acute hypoxemic respiratory failure secondary to acute exacerbation of heart failure with preserved ejection fraction, started on GDM T , new onset atrial fibrillation controlled with amiodarone and a type 2 PR due to heart failure. She continues to require high doses of insulin to maintain her blood sugars. Physical therapy worked with the today, which was able to stand up from her bed. Plan Plan 1. Acute hypoxemic respiratory failure Secondary to acute on chronic congestive heart failure with preserved ejection fraction 60-65%, obesity hypoventilation syndrome Pulmonary hypertension group 3 with cor pulmonale NYHA class IV, AHA stage C Patient is currently requiring high-flow nasal cannula with intermittent BiPAP, saturating well. CPAP at night. Echocardiogram reported EF of 60-65%, normal systolic function, RVSP elevated at 44 mmHg Patient's proBNP elevated 3823 Chest x-ray shows pulmonary congestion with pleural effusion. Plan Currently on Lasix 40 mg IV t.i.d., diuresing well with an output of 2300 Continue Jardiance 10 with a part of GDM T. Continue Solu-Medrol reduced to 40 b.i.d., DuoNeb q.6h scheduled and q.2h p.r.n. Continue incentive spirometry. Strict input& output monitoring, daily weights. Dr. Noriega, silk screen layout drafter and Nephrology on board 2. Type 2 troponinemia-demand ischemia Patient given complaints of shortness of Breath and elevated trops, which down trended. Likely due to acute exacerbation CHF, new onset atrial fibrillation, obesity hypoventilation syndrome 3. New onset atrial fibrillation with controlled ventricular rate Yfn Vasc: 3, has bled score:2 Patient had a well controlled with amiodarone 400 mg p.o. b.i.d., We will continue the dose for now and plan to reduce it later. Held Eliquis 5 mg p.o. b.i.d. 4. Elevated D-dimer with a Wells score of 3. D-dimer 1.96 could not get a V/Q scan since the patient is not able to lay flat. CTA not recommended in view of ASHELY. Started the patient on heparin drip for 48 hours. 5. Newly diagnosed uncontrolled type 2 diabetes mellitus HGB A1c elevated at 9.7% Educated the patient about her new diagnosis, educated on diet and lifestyle modification. Her blood sugars were in the range of 200s today. Continue Lantus 45 b.i.d., insulin lispro 30 with every meal 6. Right great toe ulcer, most likely diabetic foot ulcer with cellulitis Currently does not meet SIRS criteria with a new suspected source of infection. WBC, inflammatory markers within normal range Vascular ultrasound ruled out any venous insufficiency,dvt Blood cultures negative after 5 days Stoped ceftriaxone and vancomycin since she has completed 7 day course. Continue metronidazole for 3 more days with Culturelle. Wound care consult in place 7. ASHELY likely prerenal due to vasomotor nephropathy FENA less than 0.2% indicating prerenal Creatinine improved to 2.44 today. Renal ultrasound was essentially normal. No fluids to be administered. Continue to monitor CMP 8. Subclinical hypothyroidism. TSH elevated 9.71 T3 and free T4 elevated, most likely due to ongoing critical condition. Started the patient on levothyroxine 25 mcg p.o. daily. 9. Morbid obesity BMI of 44 kg/meter squared Would recommend diet control and possible surgical options 10. Possible sleep apnea Significant morbid obesity CPAP at night, outpatient sleep study. Code Status: Full code DVT Prophylaxis: Heparin drip Analgesia/Sedation: Dilaudid Lines/Tubes: PIV Nutrition: 75 g carb controlled, heart healthy. PT:yes Prognosis: Guarded Disposition: Physical therapy work with the patient and rehabilitation case coordinator to find rehab. Critical care time: We spent a total of 35 minutes with the patient in view of her current condition and her comorbidities. The above note has been reviewed and supervised by the senior resident PGY 2/PGY 3. Patient was seen and examined and discussed with attending physician Martín Hansen MD Internal medicine resident,PGY-1 Date of Service: Apr 03, 2025 Billing Provider: DARYL SCHWARTZ MD, SHIVANI, RES Apr 03, 2025 14:35
[2025-04-03] MEDS ORDERED: HEPARIN DRIP INITAL BOLUS --- DO NOT GIVE/ORDER MC ONE (14:40)
--- NOTE | 2025-04-03 15:36 | RADIOLOGY REPORT ---
NUCLEAR MEDICINE VENTILATION/PERFUSION LUNG SCAN. INDICATION: sob COMPARISON: CT ANGIO PULMONARY W CONTRAST on DOS: 03/28/25, XR CHEST AP PORTABLE on DOS: 03/28/25 TECHNIQUE: Following intravenous demonstration of 4.6 millicuries of technetium 99m MAA, scintigrams were obtained in multiple projections of the lungs. FINDINGS: There is normal uptake of radionuclide on perfusion portions of the examination. No perfusion defects are demonstrated. Uptake is normally homogeneous. IMPRESSION: Low probability for PE.
--- NOTE | 2025-04-03 16:20 | RADIOLOGY REPORT ---
CLINICAL HISTORY: sob TECHNIQUE: CT of the chest was performed without intravenous contrast. This exam was performed according to our departmental dose optimization program. Up-to-date CT equipment and radiation dose reduction techniques are utilized as appropriate. COMPARISON: DI CHEST,SINGLE VIEW on DOS: 03/29/25, XR CHEST AP PORTABLE on DOS: 03/28/25 FINDINGS: Lower Neck: Unremarkable Axilla, Mediastinum and Roseann: Mildly prominent axillary and mediastinal lymph nodes although predominantly normal-size. Limited evaluation of the roseann in the absence of intravenous contrast. Heart and Great Vessels: Mild cardiomegaly with trace pericardial fluid. The thoracic aorta is normal in caliber with mild calcified plaque. Mild mitral annular calcification. Central pulmonary arteries are normal caliber. Airway, Lungs and Pleura: Trachea and central airways are patent. There is interlobular septal thickening in the lungs. Scattered subsegmental atelectasis bilaterally. Moderate right and small to moderate left pleural effusions. Moderate dependent right and small dependent left lower lobe consolidations. No pneumothorax. Upper Abdomen: Retained contrast in the bilateral kidneys. Small Radiopaque structure in segment 2 of the liver. There is mild upper abdominal ascites. Chest Wall and Osseous Structures: Mildly displaced fractures of the anterolateral right 3rd and 4th ribs with callus formation. Multilevel thoracic spondylosis. Flowing anterior osteophytes of the thoracic spine compatible with dish . Chest wall edema. IMPRESSION: 1. CHF/volume overload, with mild cardiomegaly, moderate right and small to moderate left pleural effusions, interstitial pulmonary edema, chest wall edema, and upper abdominal ascites. 2. Healing anterior lateral right 3rd and 4th rib fracture deformities with callus formation. 3. Retained contrast in the bilateral kidneys which could be related to kidney dysfunction. Radiation optimization: All CT scans at this facility use at least one of these dose optimization techniques: automated exposure control mA and/or kV adjustment per patient size (includes targeted exams where dose is matched to clinical indication) or iterative reconstruction.
[2025-04-03 16:29] LABS: APTT 28 SECONDS (22-32)
[2025-04-03] MEDS: heparin 25,000 UNIT/250ml bag 250 ML IV PRN (16:42)
[2025-04-03] MEDS: heparin 10,000 units/1 ML INJ IV ONE (16:46)
[2025-04-03] MEDS: MESSAGE TO NURSING IV ONE (16:52)
--- NOTE | 2025-04-03 20:16 | PROGRESS NOTE ---
Progress Note Cardiology Providers to CC ~ Subjective Subjective Patient seen and examined this morning. The in trying to arrange for V/Q scan. Patient continues to have shortness of breath. Objective Result Diagram: 04/03/2562404/03/25624 Objective General: Conscious alert oriented Neck: Supple without enlargement of the thyroid, or lymphadenopathy, Chest: Normal size and shape, no tenderness, nonlabored breathing, Breath sounds clear to auscultation. Heart: Irregularly irregular variable S1. Abdomen: Soft, nontender, no organomegaly, bowel sounds present. Extremities: Bilateral ankle swelling with cellulitis Coagulation Studies Laboratory Tests Test 03/28/25 12:55 03/29/25 06:53 04/03/25 16:00 D-Dimer 1.96 MG/L FEU (0-0.50) H D-Dimer Comment APTT (Heparin Protocol) 53 SECONDS (45-60) Activated Partial Thromboplast Time 28 SECONDS (22-32) Coagulation Comments Problem\Assessment\Plan Additional Plan 59-year-old female with elevated troponin in the setting of multiple comorbidities respiratory failure: Being managed by primary team. Patient on high-flow oxygen and CPAP at night 2. History of atrial fibrillation. On amiodarone carvedilol and anticoagulation, rate controlled. Echocardiogram ejection fraction normal to 70% with no wall motion abnormalities. 2. Type 2 troponinemia-demand ischemia Likely due to new onset atrial fibrillation, obesity hypoventilation syndrome Consider myocardial perfusion scan when stable 5. Diabetes, hypertension, dyslipidemia with low HDL: HGB A1c elevated at 9.7% recommend keep LDL less than 55 mg %, systolic blood pressure less than 130 mm of mercury and hemoglobin is A1c less than 7%. 7. ASHELY on CKD BUN of 79 and creatinine of 2.44 on 04/03/2025. Nephrology following. 8. Other comorbidities include: Hypothyroidism, morbid obesity, sleep apnea recommend weight loss and evaluation for sleep apnea on CPAP is necessary. TAMERA OSBORNE MD Apr 03, 2025 20:16
[2025-04-03] MEDS: docusate sod 100mg capsule PO SCH (21:54)
[2025-04-03] MEDS: polyethylene glycol 3350 17gm powd pack PO SCH (21:55)
[2025-04-04] VITALS (21 sets, daily range): BP systolic 108–118; BP diastolic 63–71; PULSE 72–99; RESP 12–20; TEMP 96.9–97.7; O2SAT 89–96
[2025-04-04] MEDS: MESSAGE TO NURSING IV ONE ×4 (01:44→21:45)
[2025-04-04 06:43] LABS: MEAN PLATELET VOLUME 10.6 FL (7.4-10.4); RED CELL DISTRIBUTION WIDTH 18.3 % (11.5-14.5)
[2025-04-04 06:52] LABS: CREATININE 2.42 MG/DL (0.40-0.90); PHOSPHORUS 4.8 MG/DL (2.3-4.5); TOTAL CARBON DIOXIDE 32.5 MMOL/L (24-32); eCRCL 29 ML/MIN; eGFR 20 ML/MIN
[2025-04-04 07:46] LABS: LARGE PLATELETS MODERATE; PLATELET ESTIMATE NORMAL
[2025-04-04 07:47] LABS: ELLIPTOCYTES 1+
[2025-04-04] MEDS ORDERED: magnesium sulf-water 2g/50mL 50 ML IV PRN (12:30)
[2025-04-04] MEDS ORDERED: potassium CL 10mEq/100ml bag 100 ML IV PRN (12:30)
[2025-04-04] MEDS ORDERED: magnesium sulf-water 4G/100mL 100 ML IV PRN (12:30)
[2025-04-04] MEDS ORDERED: potassium Cl 40MEQ/1/2NS 520ml 520 ML IV PRN (12:30)
[2025-04-04] MEDS ORDERED: potassium Cl 20mEq/100mL bag 100 ML IV PRN (12:30)
[2025-04-04] MEDS ORDERED: potassium Cl 40MEQ/270ML bag 250 ML IV PRN (12:30)
--- NOTE | 2025-04-04 13:23 | PROGRESS NOTE ---
Progress Note Cardiology Providers to CC ~ Objective Result Diagram: 04/04/25 0520 04/04/25 0520 Coagulation Studies Laboratory Tests Test 03/28/25 12:55 04/03/25 16:00 04/04/25 12:50 D-Dimer 1.96 MG/L FEU (0-0.50) H D-Dimer Comment Activated Partial Thromboplast Time 28 SECONDS (22-32) APTT (Heparin Protocol) 43 SECONDS (45-75) L Coagulation Comments Problem\Assessment\Plan Additional Plan 59-year-old female with elevated troponin in the setting of multiple comorbidities respiratory failure: Being managed by primary team. Patient on supportive measures and antibiotics 2. History of atrial fibrillation. On amiodarone carvedilol and anticoagulation, rate controlled. Echocardiogram ejection fraction normal to 70% with no wall motion abnormalities. Decrease amiodarone to 200 mg p.o. b.i.d. for one week and then 200 mg once a day. Recommend anticoagulation 2. Type 2 troponinemia-demand ischemia Likely due to new onset atrial fibrillation, obesity hypoventilation syndrome Consider myocardial perfusion scan when stable 5. Diabetes, hypertension, dyslipidemia with low HDL: HGB A1c elevated at 9.7% recommend keep LDL less than 55 mg %, systolic blood pressure less than 130 mm of mercury and hemoglobin is A1c less than 7%. 7. ASHELY on CKD BUN of 77 . Patient had good urine output last night. Appears to be entering diuretic phase of ATN. Hopefully she will help in wall fluid/volume overload situation. Nephrology following. 8. Other comorbidities include: Hypothyroidism, morbid obesity, sleep apnea recommend weight loss and evaluation for sleep apnea on CPAP is necessary. TAMERA OSBORNE MD Apr 04, 2025 13:23
[2025-04-04] MEDS: heparin 10,000 units/1 ML INJ IV PRN (13:49)
--- NOTE | 2025-04-04 14:12 | PROGRESS NOTE- Residence ---
Progress Note - Resident Providers to CC Resident Creating Document: MARTÍN HANSEN, RES ~ Central Line/PICC still needed: N\A Antibiotic Timeout Antibiotic Ordered?: Yes Subjective Patient seen and examined at the bedside today. She continues to be on high- flow oxygen bundle FiO2 was reduced to 80 today. Meeting saturation above 90%. CPAP at night. Her blood sugars are finally controlled with 45 Lantus b.i.d. and 30 lispro with every meal. She did get a V/Q scan yesterday, but the V/Q scan was with BiPAP. After discussion with a billing and quality technician, it is clear that V/Q scan with BiPAP does not truly reflect the ventilation but only the perfusion. Hence PE could not be ruled out in this patient. We started heparin drip 48 hours, we will continue Eliquis after. Objective Vital Signs Date Time Temp Pulse Resp B/P (MAP) Pulse Ox O2 Delivery O2 Flow Rate FiO2 04/04/25 11:21 73 18 94 20.0 85 04/04/25 08:00 High Flow Nasal Cannula 04/04/25 06:00 97.7 108/69 (82) Result Diagram: 04/04/25 0520 04/04/25 0520 General: Awake, oriented to person, place and time, morbidly obese HEENT: Conjunctive are pink, sclerae clear, no icterus, pupil is equal in both sides, reactive to light, no ear discharge, no pharyngeal erythema or an edema. Neck: Supple, no JVD, no lymphadenopathy and thyromegaly. Chest: Decreased air entry noted both lungs, bibasilar fine Creps heard. Cardiovascular: S1-S2 heard, irregular rhythm, normal rate, no murmurs or rubs heard Abdomen: Abdominal anasarca noted, No visible peristalsis, Bowel sounds present on auscultation, soft, no tenderness, no guarding, no rigidity Extremities: Bilateral lower extremity chronic venous stasis noted, right great toe with ulcer healing, healthy base which is bandaged, the bandages look clean and dry. right lower extremity appeared erythematous and warm to touch, no tenderness noted. Left lower extremity edematous, feeble pulses noted in bilateral lower extremities Neurologic: Mental status: alert and conscious, oriented to place, person and time, preserved memory, normal speech. Cranial nerves I-XII: Normal. Motor system: Preserved power, coordination, no evidenced involuntary movements, strength in lower extremities 3/5 Sensory system: Preserved temperature, pain and vibration sensation. 2+ deep tendon reflexes in biceps, triceps, quadriceps. Negative Babinski. Cerebellar: No nystagmus, dysdiadochokinesia, normal [id number] testing. Musculoskeletal: No joint swelling, deformities, inflammations, and no scoliosis and back tenderness Skin: Warm and dry. Dry oral mucosa. Right arm small a skin abrasion noted, left arm bruises noted Coagulation Studies Laboratory Tests Test 03/28/25 12:55 04/03/25 16:00 04/04/25 12:50 D-Dimer 1.96 MG/L FEU (0-0.50) H D-Dimer Comment Activated Partial Thromboplast Time 28 SECONDS (22-32) APTT (Heparin Protocol) 43 SECONDS (45-75) L Coagulation Comments Assessment Assessment This is a 59-year-old female with no prior medical contact and self neglect, transferred from [facility] in view of shortness of Breath and raising troponin. She is currently being treated for acute hypoxemic respiratory failure secondary to acute exacerbation of heart failure with preserved ejection fraction, started on GDM T , new onset atrial fibrillation controlled with amiodarone and a type 2 UT due to heart failure. She is diuresing well. She is currently on a 48 hours heparin drip since V/Q scan could not rule out pulmonary embolism. Plan Plan 1. Acute hypoxemic respiratory failure Secondary to acute on chronic congestive heart failure with preserved ejection fraction 60-65%, obesity hypoventilation syndrome Pulmonary hypertension group 3 with cor pulmonale Bilateral pleural effusion, right greater than left. NYHA class IV, AHA stage C Patient is currently requiring high-flow nasal cannula with intermittent BiPAP, saturating well. CPAP at night. Echocardiogram reported EF of 60-65%, normal systolic function, RVSP elevated at 44 mmHg Patient's proBNP elevated 3823 Chest x-ray shows pulmonary congestion with pleural effusion. Plan Currently on Lasix 40 mg IV t.i.d., diuresing well with an output of 5 L in the past 24 hours Continue Jardiance 10 with a part of GDM T. Continue Solu-Medrol 40 b.i.d., DuoNeb q.6h scheduled and q.2h p.r.n. Started the patient on acetazolamide 500 mg IV stat and 250 mg IV b.i.d.. Continue incentive spirometry. Strict input& output monitoring, daily weights. Loan Review Manager consulted, recommended medical management for pleural effusion since the patient is diuresing well. Dr. Noriega, gut carrier and Nephrology on board 2. Type 2 troponinemia-demand ischemia Patient gives complaints of shortness of Breath and elevated trops, which down trended. Likely due to acute exacerbation CHF, new onset atrial fibrillation, obesity hypoventilation syndrome 3. New onset atrial fibrillation with controlled ventricular rate Yfn Vasc: 3, has bled score:2 Patient had a well controlled with amiodarone 400 mg p.o. b.i.d., We will continue the dose for now and plan to reduce it later. Held Eliquis 5 mg p.o. b.i.d. 4. Elevated D-dimer with a Wells score of 3. D-dimer 1.96 could not get a V/Q scan since the patient is not able to lay flat. CTA not recommended in view of ASHELY. Started the patient on heparin drip for 48 hours. 5. Newly diagnosed uncontrolled type 2 diabetes mellitus HGB A1c elevated at 9.7% Educated the patient about her new diagnosis, educated on diet and lifestyle modification. Her blood sugars were in the range of 200s today. Continue Lantus 45 b.i.d., insulin lispro 30 with every meal 6. Right great toe ulcer, most likely diabetic foot ulcer with cellulitis Currently does not meet SIRS criteria with a new suspected source of infection. WBC, inflammatory markers within normal range Vascular ultrasound ruled out any venous insufficiency,dvt Blood cultures negative after 5 days Continue metronidazole for 2 more days with Culturelle. Wound care consult in place 7. ASHELY likely prerenal due to vasomotor nephropathy FENA less than 0.2% indicating prerenal Creatinine improved to 2.42 today. Renal ultrasound was essentially normal. No fluids to be administered. Continue to monitor CMP 8. Subclinical hypothyroidism. TSH elevated 9.71 T3 and free T4 elevated, most likely due to ongoing critical condition. Started the patient on levothyroxine 25 mcg p.o. daily. 9. Morbid obesity BMI of 44 kg/meter squared Would recommend diet control and possible surgical options 10. Possible sleep apnea Significant morbid obesity CPAP at night, outpatient sleep study. Code Status: Full code DVT Prophylaxis: Heparin drip Analgesia/Sedation: Dilaudid Lines/Tubes: PIV Nutrition: 75 g carb controlled, heart healthy. PT:yes Prognosis: Guarded Disposition: Physical therapy work with the patient and residential case manager to find rehab. Critical care time: We spent a total of 35 minutes with the patient in view of her current condition and her comorbidities. The above note has been reviewed and supervised by the senior resident PGY 2/PGY 3. Patient was seen and examined and discussed with attending physician Martín Hansen MD Internal medicine resident,PGY-1 Date of Service: Apr 04, 2025 Billing Provider: DARYL SCHWARTZ MD, SHIVANI, RES Apr 04, 2025 14:12
--- NOTE | 2025-04-04 14:29 | CONSULTATION REPORT - RESIDENT ---
Consult Providers to CC Resident Creating Document: MARTÍN HANSEN RES History of Present Illness Reason for Admit\Complaint: SOB History of Present Illness This is a 59-year-old female with self neglect, no prior health care contact presents to the ED related to worsening shortness of breath and lower limb edema. She was diagnosed with acute on chronic hypoxemic respiratory failure secondary to CHF with preserved ejection fraction, obesity hyperventilation syndrome, YOMAIRA. New diagnosis of AFib with RVR, hypothyroidism, uncontrolled type 2 diabetes, ASHELY on CKD. Educational Director was consulted in view of her high oxygen requirement and extensive medical condition. Currently she is maintaining saturation above 90% with high-flow oxygen, FiO2 of 80% and CPAP at night. She desaturates rapidly with movement and in supine position. She gets breathless while talking. Allergies: Coded Allergies: Antihistamines - Alkylamine (Verified Adverse Reaction, Severe, VOMITING, 03/28/25) VOMITING codeine (Verified Adverse Reaction, Mild, NAUSEA, 03/28/25) Past Surgical History Surgical History Comment Patient underwent bilateral shoulder surgeries and neck surgery 15 years Appendicectomy Exam Vitals: Vital Signs Date Time Temp Pulse Resp B/P (MAP) Pulse Ox O2 Delivery O2 Flow Rate FiO2 04/04/25 11:21 73 18 94 20.0 85 04/04/25 08:00 High Flow Nasal Cannula 04/04/25 06:00 97.7 108/69 (82) General: General: Awake, oriented to person, place and time, morbidly obese HEENT: Conjunctive are pink, sclerae clear, no icterus, pupil is equal in both sides, reactive to light, no ear discharge, no pharyngeal erythema or an edema. Neck: Supple, no JVD, no lymphadenopathy and thyromegaly. Chest: Decreased air entry noted both lungs, bibasilar fine Creps heard. Cardiovascular: S1-S2 heard, irregular rhythm, normal rate, no murmurs or rubs heard Abdomen: Abdominal anasarca noted, No visible peristalsis, Bowel sounds present on auscultation, soft, no tenderness, no guarding, no rigidity Extremities: Bilateral lower extremity chronic venous stasis noted, right great toe with ulcer healing, healthy base which is bandaged, the bandages look clean and dry. right lower extremity appeared erythematous and warm to touch, no tenderness noted. Left lower extremity edematous, feeble pulses noted in bilateral lower extremities Neurologic: Mental status: alert and conscious, oriented to place, person and time, preserved memory, normal speech. Cranial nerves I-XII: Normal. Motor system: Preserved power, coordination, no evidenced involuntary movements, strength in lower extremities 3/5 Sensory system: Preserved temperature, pain and vibration sensation. 2+ deep tendon reflexes in biceps, triceps, quadriceps. Negative Babinski. Cerebellar: No nystagmus, dysdiadochokinesia, normal [id number] testing. Musculoskeletal: No joint swelling, deformities, inflammations, and no scoliosis and back tenderness Skin: Warm and dry. Dry oral mucosa. Right arm small a skin abrasion noted, left arm bruises noted Diagnostic Data Last Recorded Lab Results: 04/04/25 0520 04/04/25 0520 Diagnostic Data: Laboratory Tests Test 03/28/25 12:55 04/03/25 16:00 04/04/25 12:50 D-Dimer 1.96 MG/L FEU (0-0.50) H D-Dimer Comment Activated Partial Thromboplast Time 28 SECONDS (22-32) APTT (Heparin Protocol) 43 SECONDS (45-75) L Coagulation Comments Additional Plan 1. Acute hypoxic respiratory failure secondary to acute on chronic congestive heart failure with preserved ejection fraction Obesity hyperventilation syndrome Type of troponinemia Pulmonary hypertension group 3 with cor pulmonale RVSP of 44 Bilateral pleural effusion NYHA class 4, AHA stage III Continue oxygen via high-flow nasal cannula and intermittent BiPAP. Reviewed her CT findings. Bilateral pleural effusion, right more than left. Currently do not recommend thoracentesis since she is diuresing well. Lasix 40 mg IV t.i.d., diuresing well Continue Solu-Medrol, DuoNeb, strict input and output monitoring Cardiology procurement technician and Nephrology on board. 2. AFib with RVR, Yfn Vasc 3. Amiodarone 400 mg p.o. b.i.d. heparin drip. 3. Positive pulmonary embolism. V/Q scan could not rule out PE. Heparin drip for 48 hours, continue Eliquis after that. 4. Uncontrolled type 2 diabetes Hemoglobin A1c 9.7, Lantus 45 b.i.d., insulin lispro 30 with every meal 5. Right great toe ulcer, most likely diabetic foot ulcer with cellulitis Wound looks healthy, completed antibiotic course. 6. Subclinical hypothyroidism TSH 9.7, levothyroxine 25 mcg 7. Morbid obesity Educated the patient, 75 g carb , heart healthy diet Code Status: Full code DVT Prophylaxis: Heparin drip Analgesia/Sedation: Dilaudid Lines/Tubes: PIV Nutrition: 75 g carb controlled, heart healthy. PT:yes Prognosis: Guarded Disposition: Physical therapy work with the patient and major case detective to find rehab. Critical care time: We spent a total of 35 minutes with the patient in view of her current condition and her comorbidities. The above note has been reviewed and supervised by the senior resident PGY 2/PGY 3. Patient was seen and examined and discussed with attending physician Martín Hansen MD Internal medicine resident,PGY-1 Date of Service: Apr 04, 2025 Billing Provider: RAFA KAMINSKI MD, SHIVANI, RES Apr 04, 2025 14:29
[2025-04-04] MEDS: potassium Cl 20 mEq SR tablet PO PRN (15:23)
[2025-04-04] MEDS ORDERED: VANCOMYCIN LEVEL IV ONE (15:30)
--- NOTE | 2025-04-04 18:29 | CONSULTATION REPORT ---
Consult Providers to CC ~ History of Present Illness Reason for Admit\Complaint: ASHELY evaluation History of Present Illness This is a 59-year-old morbidly obese woman with no regular medical care for many years, transferred for NSTEMI, acute decompensated heart failure, and new-onset atrial fibrillation with RVR, now complicated by acute kidney injury on underlying CKD stage IIIb, volume overload, and metabolic derangements. Renal dysfunction is most consistent with prerenal azotemia driven by cardiorenal syndrome in the setting of acute CHF exacerbation and atrial fibrillation with RVR, supported by FeNa <0.2%. Creatinine has risen from 1.79 on admission to 2.42 with elevated BUN (77), reflecting reduced renal perfusion rather than intrinsic renal injury. Hyperkalemia has improved on Lokelma and can likely be discontinued. Electrolytes otherwise notable for metabolic alkalosis likely secondary to loop diuretic use. Renal function requires close monitoring while balancing ongoing diuresis and hemodynamic optimization. Allergies: Coded Allergies: Antihistamines - Alkylamine (Verified Adverse Reaction, Severe, VOMITING, 03/28/25) VOMITING codeine (Verified Adverse Reaction, Mild, NAUSEA, 03/28/25) Past Medical History Past Medical History Reviewed Past Surgical History Surgical History Comment Reviewed Past Social History Social History Comment Reviewed Health Maintenance Health Maintenance Reviewed ROS ROS See HPI, all other systems negative by patient's history Exam Vitals: Vital Signs Date Time Temp Pulse Resp B/P (MAP) Pulse Ox O2 Delivery O2 Flow Rate FiO2 04/04/25 16:00 88 18 High Flow Nasal Cannula 20.0 85 04/04/25 15:58 89 04/04/25 15:00 96.9 112/64 (80) Alert and oriented x2, appears comfortable Regular rate and rhythm without murmur, body habitus prohibits JVD evaluation Clear to auscultation bilaterally no wheezes Positive bowel sounds distant, nontender One to 2+ edema to knees bilaterally Diagnostic Data Last Recorded Lab Results: 04/04/25 0520 04/04/25 0520 Diagnostic Data: Laboratory Tests Test 03/28/25 12:55 04/03/25 16:00 04/04/25 12:50 D-Dimer 1.96 MG/L FEU (0-0.50) H D-Dimer Comment Activated Partial Thromboplast Time 28 SECONDS (22-32) APTT (Heparin Protocol) 43 SECONDS (45-75) L Coagulation Comments Problems: (1) ASHELY (acute kidney injury) Assessment & Plan: Acute Kidney Injury on CKD Stage IIIb Most likely etiology Prerenal azotemia due to cardiorenal syndrome from acute decompensated heart failure and atrial fibrillation with RVR Supported by FeNa <0.2%, elevated BUN/Cr ratio, and clinical volume overload Differential considerations Acute tubular necrosis Less likely: no hypotension, no prolonged ischemia, no muddy brown casts reported Contrast-associated ASHELY Less likely: creatinine rise pattern and urine indices favor prerenal physiology Obstructive uropathy Unlikely given no hydronephrosis or urinary retention symptoms reported Plan Continue strict Is and Os with daily weights Daily renal function monitoring (BMP) Optimize cardiac output and rate control to improve renal perfusion Avoid nephrotoxins (NSAIDs, IV contrast if possible) Adjust medication dosing for current eGFR Renal replacement therapy not indicated at this time (2) CKD (chronic kidney disease) stage 4, GFR 15-29 ml/min Assessment & Plan: Acute Kidney Injury on CKD Stage IIIb Most likely etiology Prerenal azotemia due to cardiorenal syndrome from acute decompensated heart failure and atrial fibrillation with RVR Supported by FeNa <0.2%, elevated BUN/Cr ratio, and clinical volume overload Differential considerations Acute tubular necrosis Less likely: no hypotension, no prolonged ischemia, no muddy brown casts reported Contrast-associated ASHELY Less likely: creatinine rise pattern and urine indices favor prerenal physiology Obstructive uropathy Unlikely given no hydronephrosis or urinary retention symptoms reported Plan Continue strict Is and Os with daily weights Daily renal function monitoring (BMP) Optimize cardiac output and rate control to improve renal perfusion Avoid nephrotoxins (NSAIDs, IV contrast if possible) Adjust medication dosing for current eGFR Renal replacement therapy not indicated at this time (3) Congestive heart failure Status: Acute Assessment & Plan: Stable improving with diuresis Problem Qualifiers (1) Congestive heart failure: Heart failure type: unspecified Heart failure chronicity: acute on chronic Q ualified Codes: I50.9 - Heart failure, unspecified WALL,KJ M III DO Apr 04, 2025 18:29
[2025-04-04] MEDS: acetaZOLAMIDE IV 500mg inj IV ONE (18:31)
[2025-04-05] VITALS (20 sets, daily range): BP systolic 89–107; BP diastolic 41–61; PULSE 63–85; RESP 13–21; TEMP 97–98.1; O2SAT 88–94
[2025-04-05] MEDS: MESSAGE TO NURSING IV ONE ×2 (04:31→12:39)
[2025-04-05 07:06] LABS: MEAN PLATELET VOLUME 10.4 FL (7.4-10.4); RED CELL DISTRIBUTION WIDTH 18.9 % (11.5-14.5)
[2025-04-05 07:13] LABS: CREATININE 1.86 MG/DL (0.40-0.90); PHOSPHORUS 5.0 MG/DL (2.3-4.5); TOTAL CARBON DIOXIDE 34.5 MMOL/L (24-32); eCRCL 38 ML/MIN; eGFR 28 ML/MIN
[2025-04-05] MEDS: dextrose 50%-water 50ml dispensing syringe IV PRN (07:42)
[2025-04-05] MEDS: acetaZOLAMIDE IV 500mg inj IV SCH (07:45)
[2025-04-05] MEDS ORDERED: acetaZOLAMIDE IV 500mg inj IV SCH (08:00)
[2025-04-05] MEDS: potassium Cl 20 mEq SR tablet PO PRN (13:00)
[2025-04-05] MEDS: magnesium sulf-water 4G/100mL 100 ML IV ONE (13:09)
--- NOTE | 2025-04-05 14:14 | PROGRESS NOTE ---
Progress Note Cardiology Providers to CC ~ Subjective Subjective Patient seen and examined this afternoon. Patient worked with physical therapy minimally with dangling her feet. Overall feels better with improved breathing with significant diuresis. Objective Result Diagram: 04/05/25 0604/05/25633 Objective Conscious alert oriented. Neck: Supple without enlargement of the thyroid, or lymphadenopathy, Chest: Normal size and shape, no tenderness, nonlabored breathing, Breath sounds diminished bibasilarly but improving Heart: Irregularly irregular variable S1. Abdomen: Soft, nontender, no organomegaly, bowel sounds present. Extremities: Bilateral ankle swelling with cellulitis Coagulation Studies Laboratory Tests Test 03/28/25 12:55 04/03/25 16:00 04/05/25 10:07 D-Dimer 1.96 MG/L FEU (0-0.50) H D-Dimer Comment Activated Partial Thromboplast Time 28 SECONDS (22-32) APTT (Heparin Protocol) 55 SECONDS (45-75) Coagulation Comments Problem\Assessment\Plan Additional Plan 1. 59-year-old female with elevated troponin in the setting of multiple comorbidities respiratory failure and cellulitis: On antibiotic and oxygen Being managed by primary team. Patient on supportive measures and antibiotics 2. History of atrial fibrillation. On amiodarone carvedilol and anticoagulation, rate controlled. Echocardiogram ejection fraction normal to 70% with no wall motion abnormalities. Decrease amiodarone to 200 mg p.o. b.i.d. for one week and then 200 mg once a day. Recommend anticoagulation 2. Type 2 troponinemia-demand ischemia Likely due to new onset atrial fibrillation, obesity hypoventilation syndrome Consider myocardial perfusion scan when stable 5. Diabetes, hypertension, dyslipidemia with low HDL: HGB A1c elevated at 9.7% recommend keep LDL less than 55 mg %, systolic blood pressure less than 130 mm of mercury and hemoglobin is A1c less than 7%. 7. ASHELY on CKD BUN of 73 and creatinine of 1.86 on 04/05/2025 Patient had good urine output last night. Appears to be entering diuretic phase of ATN. Hopefully she will help in wall fluid/volume overload situation. Nephrology following. 8. Other comorbidities include: Hypothyroidism, morbid obesity, sleep apnea recommend weight loss and evaluation for sleep apnea on CPAP is necessary. TAMERA OSBORNE MD Apr 05, 2025 14:14
--- NOTE | 2025-04-05 18:13 | PROGRESS NOTE ---
Progress Note Dictate Providers to CC ~ Antibiotic Ordered?: N/A Subjective Subjective Improved renal function overnight, nurses report no new events, she has Objective Vitals Vital Signs Date Time Temp Pulse Resp B/P (MAP) Pulse Ox O2 Delivery O2 Flow Rate FiO2 04/05/25 16:09 78 18 High Flow Nasal Cannula 20.0 60 04/05/25 16:06 92 04/05/25 11:00 97.5 89/41 (57) Lab Results: 04/05/25 0634 04/05/25 0634 Coagulation Studies Laboratory Tests Test 03/28/25 12:55 04/03/25 16:00 04/05/25 16:42 D-Dimer 1.96 MG/L FEU (0-0.50) H D-Dimer Comment Activated Partial Thromboplast Time 28 SECONDS (22-32) APTT (Heparin Protocol) 64 SECONDS (45-75) Coagulation Comments Problem\Assessment\Plan Problems/Diagnosis: (1) ASHELY (acute kidney injury) Assessment & Plan: Acute Kidney Injury on CKD Stage IIIb Most likely etiology Prerenal azotemia due to cardiorenal syndrome from acute decompensated heart failure and atrial fibrillation with RVR Supported by FeNa <0.2%, elevated BUN/Cr ratio, and clinical volume overload Differential considerations Acute tubular necrosis Less likely: no hypotension, no prolonged ischemia, no muddy brown casts reported Contrast-associated ASHELY Less likely: creatinine rise pattern and urine indices favor prerenal physiology Obstructive uropathy Unlikely given no hydronephrosis or urinary retention symptoms reported Plan Continue strict Is and Os with daily weights Daily renal function monitoring (BMP) Optimize cardiac output and rate control to improve renal perfusion Avoid nephrotoxins (NSAIDs, IV contrast if possible) Adjust medication dosing for current eGFR Renal replacement therapy not indicated at this time, but my fear is she may start to decline and EMERGENCY MEDICINE NURSE PRACTITIONER may be needed (2) CKD (chronic kidney disease) stage 4, GFR 15-29 ml/min Assessment & Plan: Acute Kidney Injury on CKD Stage IIIb Most likely etiology Prerenal azotemia due to cardiorenal syndrome from acute decompensated heart failure and atrial fibrillation with RVR Supported by FeNa <0.2%, elevated BUN/Cr ratio, and clinical volume overload Differential considerations Acute tubular necrosis Less likely: no hypotension, no prolonged ischemia, no muddy brown casts reported Contrast-associated ASHELY Less likely: creatinine rise pattern and urine indices favor prerenal physiology Obstructive uropathy Unlikely given no hydronephrosis or urinary retention symptoms reported Plan Continue strict Is and Os with daily weights Daily renal function monitoring (BMP) Optimize cardiac output and rate control to improve renal perfusion Avoid nephrotoxins (NSAIDs, IV contrast if possible) Adjust medication dosing for current eGFR Renal replacement therapy not indicated at this time (3) Congestive heart failure Assessment & Plan: Stable improving with diuresis and amiodarone Problem Qualifiers (1) Congestive heart failure: Qualified Codes: I50.9 - Heart failure, unspecified WALL,KJ M III DO Apr 05, 2025 18:13
--- NOTE | 2025-04-05 18:26 | PROGRESS NOTE- Residence ---
Progress Note - Resident Providers to CC Resident Creating Document: MARTÍN HANSEN RES ~ Antibiotic Timeout Antibiotic Ordered?: No Subjective Patient seen and examined at the bedside today. She continues to be on high- flow oxygen bundle FiO2 was reduced to 80 today. Meeting saturation above 90%. CPAP at night. Her blood sugars are finally controlled with 45 Lantus b.i.d. and 30 lispro with every meal. She did get a V/Q scan yesterday, but the V/Q scan was with BiPAP. After discussion with a nuclear physics teacher, it is clear that V/Q scan with BiPAP does not truly reflect the ventilation but only the perfusion. Hence PE could not be ruled out in this patient. We started heparin drip 48 hours, we will continue Eliquis after. Objective Vital Signs Date Time Temp Pulse Resp B/P (MAP) Pulse Ox O2 Delivery O2 Flow Rate FiO2 04/05/25 16:09 78 18 High Flow Nasal Cannula 20.0 60 04/05/25 16:06 92 04/05/25 11:00 97.5 89/41 (57) Result Diagram: 04/05/25 0634 04/05/25 0634 General: Awake, oriented to person, place and time, morbidly obese HEENT: Conjunctive are pink, sclerae clear, no icterus, pupil is equal in both sides, reactive to light, no ear discharge, no pharyngeal erythema or an edema. Neck: Supple, no JVD, no lymphadenopathy and thyromegaly. Chest: Decreased air entry noted both lungs, bibasilar fine Creps heard. Cardiovascular: S1-S2 heard, irregular rhythm, normal rate, no murmurs or rubs heard Abdomen: Abdominal anasarca noted, No visible peristalsis, Bowel sounds present on auscultation, soft, no tenderness, no guarding, no rigidity Extremities: Bilateral lower extremity chronic venous stasis noted, right great toe with ulcer healing, healthy base which is bandaged, the bandages look clean and dry. right lower extremity appeared erythematous and warm to touch, no tenderness noted. Left lower extremity edematous, feeble pulses noted in bilateral lower extremities Neurologic: Mental status: alert and conscious, oriented to place, person and time, preserved memory, normal speech. Cranial nerves I-XII: Normal. Motor system: Preserved power, coordination, no evidenced involuntary movements, strength in lower extremities 3/5 Sensory system: Preserved temperature, pain and vibration sensation. 2+ deep tendon reflexes in biceps, triceps, quadriceps. Negative Babinski. Cerebellar: No nystagmus, dysdiadochokinesia, normal [id number] testing. Musculoskeletal: No joint swelling, deformities, inflammations, and no scoliosis and back tenderness Skin: Warm and dry. Dry oral mucosa. Right arm small a skin abrasion noted, left arm bruises noted Coagulation Studies Laboratory Tests Test 03/28/25 12:55 04/03/25 16:00 04/05/25 16:42 D-Dimer 1.96 MG/L FEU (0-0.50) H D-Dimer Comment Activated Partial Thromboplast Time 28 SECONDS (22-32) APTT (Heparin Protocol) 64 SECONDS (45-75) Coagulation Comments Assessment Assessment This is a 59-year-old female with no prior medical contact and self neglect, transferred from [facility] in view of shortness of Breath and raising troponin. She is currently being treated for acute hypoxemic respiratory failure secondary to acute exacerbation of heart failure with preserved ejection fraction, started on GDM T , new onset atrial fibrillation controlled with amiodarone and a type 2 CO due to heart failure. She is diuresing well. She is currently on a 48 hours heparin drip since V/Q scan could not rule out pulmonary embolism. Plan Plan 1. Acute hypoxemic respiratory failure Secondary to acute on chronic congestive heart failure with preserved ejection fraction 60-65%, obesity hypoventilation syndrome Pulmonary hypertension group 3 with cor pulmonale Bilateral pleural effusion, right greater than left. NYHA class IV, AHA stage C Patient is currently requiring high-flow nasal cannula with intermittent BiPAP, saturating well. CPAP at night. We are able to reduce oxygen requirement from 5-20%, FiO2 at 80 Echocardiogram reported EF of 60-65%, normal systolic function, RVSP elevated at 44 mmHg Patient's proBNP elevated 3823 Chest x-ray shows pulmonary congestion with pleural effusion. Plan Currently on Lasix 40 mg IV t.i.d., diuresing well with a negative balance of 3 L patient currently has contraction alkalosis, Continue acetazolamide 250 mg IV b.i.d. Continue Jardiance 10 with a part of GDM T. Continue Solu-Medrol 40 b.i.d., DuoNeb q.6h scheduled and q.2h p.r.n. Continue incentive spirometry. Strict input& output monitoring, daily weights. Marketing Compliance Manager consulted, recommended medical management for pleural effusion since the patient is diuresing well. Dr. Noriega, urinalysis technician and Nephrology on board 2. Type 2 troponinemia-demand ischemia Patient gives complaints of shortness of Breath and elevated trops, which down trended. Likely due to acute exacerbation CHF, new onset atrial fibrillation, obesity hypoventilation syndrome 3. New onset atrial fibrillation with controlled ventricular rate Yfn Vasc: 3, has bled score:2 Amiodarone dose reduced to 200 mg p.o. b.i.d. with carvedilol 3.125 b.i.d. Started Eliquis 10 mg p.o. b.i.d. for 7 days 4. Elevated D-dimer with a Wells score of 3. D-dimer 1.96 could not get a V/Q scan since the patient is not able to lay flat. CTA not recommended in view of ASHELY. Heparin drip 48 hours completed, continue Eliquis 10 mg p.o. b.i.d. for 7 days 5. Newly diagnosed uncontrolled type 2 diabetes mellitus HGB A1c elevated at 9.7% Educated the patient about her new diagnosis, educated on diet and lifestyle modification. Fasting blood sugar were in the range of 70s today, reduced the dose of Lantus to 38 b.i.d. 6. Right great toe ulcer, most likely diabetic foot ulcer with cellulitis Currently does not meet SIRS criteria with a new suspected source of infection. WBC, inflammatory markers within normal range Vascular ultrasound ruled out any venous insufficiency,dvt Blood cultures negative after 5 days Completed course of antibiotics, continue Culturelle. Wound care consult in place 7. ASHELY likely prerenal due to vasomotor nephropathy FENA less than 0.2% indicating prerenal Creatinine improved to 1.86 today Renal ultrasound was essentially normal. No fluids to be administered. Continue to monitor CMP 8. Subclinical hypothyroidism. TSH elevated 9.71 T3 and free T4 elevated, most likely due to ongoing critical condition. Started the patient on levothyroxine 25 mcg p.o. daily. 9. Morbid obesity BMI of 44 kg/meter squared Would recommend diet control and possible surgical options 10. Possible sleep apnea Significant morbid obesity CPAP at night, outpatient sleep study. Code Status: Full code DVT Prophylaxis: Heparin drip Analgesia/Sedation: Dilaudid Lines/Tubes: PIV Nutrition: 75 g carb controlled, heart healthy. PT:yes Prognosis: Guarded Disposition: Physical therapy work with the patient and casework supervisor to find rehab. Critical care time: We spent a total of 35 minutes with the patient in view of her current condition and her comorbidities. The above note has been reviewed and supervised by the senior resident PGY 2/PGY 3. Patient was seen and examined and discussed with attending physician Martín Hansen MD Internal medicine resident,PGY-1 Date of Service: Apr 05, 2025 Billing Provider: DARYL SCHWARTZ MD, SHIVANI, RES Apr 05, 2025 18:26
[2025-04-05] MEDS: insulin glargine (Lantus) pen - multi-dose SQ SCH (22:41)
[2025-04-06] VITALS (14 sets, daily range): BP systolic 92–97; BP diastolic 55–64; PULSE 63–78; RESP 14–20; TEMP 96.9–98.4; O2SAT 90–95
[2025-04-06 06:44] LABS: RED CELL DISTRIBUTION WIDTH 18.6 % (11.5-14.5)
[2025-04-06 06:47] LABS: MEAN PLATELET VOLUME 10.7 FL (7.4-10.4)
[2025-04-06 07:04] LABS: CREATININE 1.90 MG/DL (0.40-0.90); PHOSPHORUS 4.6 MG/DL (2.3-4.5); TOTAL CARBON DIOXIDE 34.3 MMOL/L (24-32); eCRCL 37 ML/MIN; eGFR 27 ML/MIN
--- NOTE | 2025-04-06 11:13 | PROGRESS NOTE ---
Progress Note Cardiology Providers to CC ~ Subjective Subjective Patient seen and examined this morning. Patient had brisk good diuretic response yesterday. Her breathing is getting better and FiO2 down to 60%. No chest pain Objective Result Diagram: 04/06/2561604/06/25616 Objective General: Conscious alert comfortable at Neck: Supple without enlargement of the thyroid, or lymphadenopathy, Chest: Normal size and shape, no tenderness, nonlabored breathing, Breath sounds diminished but improving Heart: Irregularly irregular, variable S1. Abdomen: Soft, nontender, no organomegaly, bowel sounds present. Extremities: Bilateral lower extremity edema with cellulitis Coagulation Studies Laboratory Tests Test 03/28/25 12:55 04/03/25 16:00 04/05/25 16:42 D-Dimer 1.96 MG/L FEU (0-0.50) H D-Dimer Comment Activated Partial Thromboplast Time 28 SECONDS (22-32) APTT (Heparin Protocol) 64 SECONDS (45-75) Coagulation Comments Problem\Assessment\Plan Additional Plan 1. 59-year-old female with elevated troponin in the setting of multiple comorbidities respiratory failure and cellulitis: On antibiotic and oxygen Being managed by primary team. Patient on supportive measures and antibiotics 2. History of atrial fibrillation. On amiodarone carvedilol and anticoagulation, rate controlled. Echocardiogram ejection fraction normal to 70% with no wall motion abnormalities. Decrease amiodarone to 200 mg p.o. b.i.d. for one week and then 200 mg once a day. Recommend anticoagulation 3. Suspected pulmonary embolism on anticoagulation, however V/Q scan was negative. CT angiography not done because of CKD 2. Type 2 troponinemia-demand ischemia Likely due to new onset atrial fibrillation, obesity hypoventilation syndrome Consider myocardial perfusion scan when stable 5. Diabetes, hypertension, dyslipidemia with low HDL: HGB A1c elevated at 9.7% recommend keep LDL less than 55 mg %, systolic blood pressure less than 130 mm of mercury and hemoglobin is A1c less than 7%. 7. ASHELY on CKD BUN of 74 and creatinine of 1.9 on 04/06/2025. Patient had good urine output last night. Appears to be in diuretic phase of ATN. Hopefully she will help in wall fluid/volume overload situation. Nephrology following. They are planning on decreasing diuretics in view of contraction alkalosis 8. Other comorbidities include: Hypothyroidism, morbid obesity, sleep apnea recommend weight loss and evaluation for sleep apnea on CPAP is necessary. If patient goes to inpatient rehabilitation, once her heart rate is controlled, plans to stop amiodarone and adopt a rate control and anticoagulation strategy. Patient to follow up with a machine filler shredder as an outpatient to decide on further management of atrial fibrillation TAMERA OSBORNE MD Apr 06, 2025 11:13
--- NOTE | 2025-04-06 17:01 | PROGRESS NOTE ---
Progress Note Dictate Providers to CC ~ Central Line/PICC still needed: No Davis Indications Met/Not Met: F/C Indications Met Antibiotic Ordered?: N/A Subjective Subjective The patienthas had excellent diuresis. creatinine is plateauing at 1.9. Expected to go to [facility] in a day or two for continued rehabilitation. Continues to be on NC. Objective Vitals Vital Signs Date Time Temp Pulse Resp B/P (MAP) Pulse Ox O2 Delivery O2 Flow Rate FiO2 04/06/25 15:01 78 18 High Flow Nasal Cannula 20.0 60 04/06/25 14:58 90 04/06/25 02:00 96.9 96/60 (72) Lab Results: 04/06/25 0617 04/06/25 0617 Objective Vital Signs: As above General: obese body habitus, no acute distress. Skin: No rashes, lumps, ulcers, blisters, purpura or petechiae HEENT: Anicteric sclera, RENEE Neck: Supple and nontender without enlargement of the thyroid, or lymphadenopathy. Chest: Normal size and shape, no tenderness, CTA bilaterally Heart: Regular. No jugular venous distention, S1 and S2 heard , no gallop Abdomen: Soft and non tender no organomegaly,BS+ Extremities: chronic lymphedema Neuro: Nonfocal. Coagulation Studies Laboratory Tests Test 03/28/25 12:55 04/03/25 16:00 04/05/25 16:42 D-Dimer 1.96 MG/L FEU (0-0.50) H D-Dimer Comment Activated Partial Thromboplast Time 28 SECONDS (22-32) APTT (Heparin Protocol) 64 SECONDS (45-75) Coagulation Comments Advance Care Planning Advanced Care plannin - 30 Minutes Problem\Assessment\Plan Problems/Diagnosis: (1) ASHELY (acute kidney injury) Assessment & Plan: Acute Kidney Injury on CKD Stage IIIb Most likely etiology Prerenal azotemia due to cardiorenal syndrome from acute decompensated heart failure and atrial fibrillation with RVR Plan Continue strict Is and Os with daily weights Daily renal function monitoring (BMP) Optimize cardiac output and rate control to improve renal perfusion Avoid nephrotoxins (NSAIDs, IV contrast if possible) Adjust medication dosing for current eGFR Renal replacement therapy not indicated at this time. (2) CKD (chronic kidney disease) stage 4, GFR 15-29 ml/min Assessment & Plan: Acute Kidney Injury on CKD Stage IIIb Most likely etiology Prerenal azotemia due to cardiorenal syndrome from acute decompensated heart failure and atrial fibrillation with RVR Plan Continue strict Is and Os with daily weights Daily renal function monitoring (BMP) Optimize cardiac output and rate control to improve renal perfusion Avoid nephrotoxins (NSAIDs, IV contrast if possible) Adjust medication dosing for current eGFR Renal replacement therapy not indicated at this time (3) Congestive heart failure Assessment & Plan: Stable improving with diuresis and amiodarone Problem Qualifiers (1) Congestive heart failure: Qualified Codes: I50.9 - Heart failure, unspecified JOSEPH VIEYRA MD Apr 06, 2025 17:01
--- NOTE | 2025-04-06 17:03 | PROGRESS NOTE- Residence ---
Progress Note - Resident Providers to CC Resident Creating Document: ROBBY ODEN, RES ~ Central Line/PICC still needed: No Davis-Non Protocol Davis Indications Met/Not Met: F/C Indications Not Met Antibiotic Timeout Antibiotic Ordered?: Yes Subjective Patient seen and examined at the bedside today. The patient reports some improvement in her breathing. She reported that she has not been able to sleep properly over the last night. Denied any other concerns or complaints at the moment. Objective Vital Signs Date Time Temp Pulse Resp B/P (MAP) Pulse Ox O2 Delivery O2 Flow Rate FiO2 04/06/25 15:01 78 18 High Flow Nasal Cannula 20.0 60 04/06/25 14:58 90 04/06/25 02:00 96.9 96/60 (72) Result Diagram: 04/06/2561604/06/25 06 General: Awake, oriented to person, place and time, obese. HEENT: Conjunctive are pink, sclerae clear, no icterus, pupil is equal in both sides, reactive to light, no ear discharge, no pharyngeal erythema or an edema. Neck: Supple, no JVD, no lymphadenopathy and thyromegaly. Chest: Bibasilar crepitations present. Cardiovascular: S1-S2 heard, irregular rhythm, normal rate, no murmurs or rubs heard Abdomen: Abdominal anasarca noted, No visible peristalsis, Bowel sounds present on auscultation, soft, no tenderness, no guarding, no rigidity Extremities: Bilateral lower extremity chronic venous stasis. Right foot wound care dressing present. No significant drainage noted. Neurologic: Mental status: alert and conscious, oriented to place, person and time, preserved memory, normal speech. Cranial nerves I-XII: Normal. Motor system: Preserved power, coordination, no evidenced involuntary movements, strength in lower extremities 3/5 Sensory system: Preserved temperature, pain and vibration sensation. 2+ deep tendon reflexes in biceps, triceps, quadriceps. Negative Babinski. Cerebellar: No nystagmus, dysdiadochokinesia, normal [id number] testing. Musculoskeletal: No joint swelling, deformities, inflammations, and no scoliosis and back tenderness Skin: Warm and dry. Dry oral mucosa. Coagulation Studies Laboratory Tests Test 03/28/25 12:55 04/03/25 16:00 04/05/25 16:42 D-Dimer 1.96 MG/L FEU (0-0.50) H D-Dimer Comment Activated Partial Thromboplast Time 28 SECONDS (22-32) APTT (Heparin Protocol) 64 SECONDS (45-75) Coagulation Comments Advance Care Planning Advanced Care plannin - 30 Minutes Assessment Assessment 59 years old female with past medical history of diabetes mellitus, noncompliance is admitted in the hospital for evaluation and management of acute hypoxemic respiratory failure secondary to acute exacerbation congestive heart failure with preserved ejection fraction, atrial fibrillation with RVR. The Nephrology team has been consulted in view of the patient's ASHELY. Plan Plan ASHELY on CKD stage 4 CKD most likely secondary to underlying diabetes mellitus Metabolic alkalosis With the most likely cause of the patient's ASHELY was cardiorenal/renal tubular stasis due to decompensated heart failure, atrial fibrillation with RVR. FeNa <0.2%, elevated BUN/Cr ratio, and clinical volume overload. The patient is currently on Lasix 40 mg IV t.i.d.. Has been significantly diuresing well. She is maintaining a negative fluid balance 5580 in the last 24 hours. Can reduced patient's Lasix to 40 b.i.d.. Continue strict input and output monitoring. Avoid nephrotoxic medications such as NSAIDs , IV contrast. Acute hypoxemic respiratory failure Most likely secondary to underlying congestive heart failure with a preserved ejection fraction Pulmonary hypertension Obstructive sleep apnea Obesity hyperventilation syndrome The patient continues to require high-flow oxygen via nasal cannula. Her FiO2 requirement is coming down. There was suspicion for pulmonary embolism or getting to the patient's pulmonary hypertension and AFib with a RVR. The patient was initially treated with IV heparin drip and transitioned to p.o. Eliquis. Machine Shop Inspector Dr. Noriega and pulper Dr. Morillo has been consulted. Appreciate recommendations. Continue management per their recommendation. Type 2 FL NSTEMI ruled out. As per the Cardiology recommendation the patient's Troponinemia was most likely secondary to demand ischemia. Currently on IV aspirin 81 mg p.o. daily, atorvastatin 80 mg p.o. daily. Continue management per the Cardiology team and tractor crane engineer team. Atrial fibrillation with rapid ventricular rate Patient was treated with IV heparin and is transitioned to p.o. Eliquis Heart rate well-controlled on p.o. amiodarone. Continue management per Cardiology recommendation. Disposition: Patient is planned to be discharge to LTAC for further care and monitoring. Patient will require continued follow up with the Nephrology Clinic in outpatient setting. Robby Oden MD Internal Medicine Resident, PGY-3 Nephrology attending: Patient is getting discharged today to [facility]. She is stable. excellent diureis. creatinine is slowly getting kadeem.r She stands a risk for future ASHELY and eventual CKD and ESRD. She is white of this. She needs to see us in the office for nephrology follow up after discahrge from rehab. Kody Vieyra MD Date of Service: Apr 06, 2025 Billing Provider: KODY VIEYRA MD,ROBBY MEJIA, RES Apr 06, 2025 17:03 KODY VIEYRA MD Apr 07, 2025 17:51
--- NOTE | 2025-04-06 19:42 | DISCHARGE SUMMARY-Residence ---
Discharge Summary Providers to CC Resident Creating Document: MELANIE VITALE, GHANSHYAM ~ Discharge Summary Admission Diagnosis: NSTEMI,AFIB Hospital Course DATE OF ADMISSION: 03/28/25 DATE OF DISCHARGE: 04/06/25 Discharge Diagnosis\Comment: Acute on chronic congestive heart failure with preserved ejection fraction 60- 65%, suspected Pulmonary hypertension Type 2 troponinemia-demand ischemia New onset atrial fibrillation with controlled ventricular rate Newly diagnosed uncontrolled type 2 diabetes mellitus Right great toe ulcer, most likely diabetic foot ulcer with cellulitis ASHELY likely prerenal due to vasomotor nephropathy Subclinical hypothyroidism. Morbid obesity Possible sleep apnea Operations\Procedures: none Consultants: Dance Choreographer and Medical Engineer Complications: none Condition on DC: Stable Discharge Summary: Hospital Course This is a 59-year-old female was transferred from [facility] for the evaluation NSTEMI and new onset AFib with RVR.She also presented with shortness of breaths and bilateral lower extremity edema troponins were elevated tx4 1069,1078,1003,872. Heparin drip was continued, cardiology also consulted and evaluated the patient, as per them type 2 demand ischemia secondary to Afib and recommended lexiscan once stable. For AFib with RVR diltiazem drip was co ntinued which was discontinued later due to soft blood pressure. SHe was also started on amiodarone drip followed by oral amiodarone and carvedilol 3.125 mg b.i.d. Patient also had acute hypoxemic respiratory failure likely secondary to acute decompensated heart failure with preserved ejection fraction, chest x-ray shows pulmonary vascular congestion and echorevealed EF 60-65% and RVSP 44. She required intermittent BiPAP and high-flow oxygen nasal cannula 20 L and due to her soft blood pressure she was started on dobutamine drip which improved her blood pressure, in addition to that she also received IV Lasix 40 mg t.i.d. then b.i.d for HF, she also developed contraction alkalosis for which she was started on acetazolamide and she was diuresing well.Nephrlogy reocmmnded diuresis, strict I and Os and follow up outpatient.Because of worsening dyspnea and elevated D-dimer. She did get a V/Q scan, but the V/Q scan was with BiPAP ,V/Q scan with BiPAP does not truly reflect the ventilation but only the perfusion. Hence PE could not be ruled out in this patient. therefore ,heparin drip was started, recommended Elliquis 10 mg BID for 7 days followed by Eliiquis [address] angio at other facility showed no intraluminal filling defect suspicious for PE, equvivocal for some small distal emboli in right lower obe.right pleural effusion with some non specific interstial and atelectatic change. Her diabetes was poorly controlled and her hb1ac was 9.7 she was started on insulin lantus and lispro and on supplmental high dose supplemental protocol,She also had right foul smelling right great toe ucler with possbile with right leg cellulitis, which she recevied vancomycin,ceftraixone and metronidazole.Vascular U/S showed no signs of DVT. Patient was sent to [facility]. Physical Examination General: awake, alert oriented to place, time, and person HEENT: No pallor present, no icterus, moist mucous membranes Neck: No masses and tenderness Resp: Unlabored.,crackles on examination imprvoed. Chest: Normal expansion. Cardiovascular: Regular Rate and rhythm, normal S1 and S2 without murmur, rub or gallop Abdomen: Soft and non tender in epigastrium, no organomegaly, no guarding and rigidity, bowel sounds present Neuro: No focal weakness in the upper and lower limb muscles, power of the muscles 5/5 bilateral upper and lower extremities, normal reflexes bilaterally. Cranial nerves intact Extremities: No cyanosis, Bilateral lower extremity chronic venous stasis Musculoskeletal: No joint swelling, deformities, inflammations Skin: Warm and Dry. No lesions Psych: Normal affect Discharge Medications Insulin lispro 15 unit TID Insulin lantus 38 unit SQ BID Acetaminophen 650 mg po Q6H Amiodarone 200 mg po BID Elliquis 10 mg PO BID for 6 days then decrease it to 5 mg BID daily. Lipitor 80 mg PO daily Carvediolol 3.125 mg PO BID Docusate 100 mg PO BID Lasix 40 mg IV BID Duonebs q6h Fly Methyprednisolone 40 mg IV daily Labs Wbc: 6.8 Rbc: 4.60 hgb 13.3 platelet 194 Creatinine 1.90 NA 143 K 3.8 Imaging Echo Conclusion Normal LV size and wall thickness. Overall systolic function is normal. LVEF is 60-65%. RV appears normal in size and function. Elevated right heart pressures with an RVSP of 44 mmHg. Left atrium is moderately dilated. Trileaflet AV appears mildly sclerotic without stenosis. No insufficiency by color and spectral flow Doppler. Mild MV annular calcification without stenosis. Trace regurgitation by color and spectral flow Doppler. TV appears structurally normal with mild regurgitation by color and spectral flow Doppler. Normal pericardium. No effusion. Vascular U/S FINDINGS: There is good visualization of the deep venous system with no intraluminal filling defects identified. Normal venous compressibility is seen and there is flow augmentation. Color flow Doppler imaging is unremarkable. There is subcutaneous edema in the popliteal fossa bilaterally. IMPRESSION: NO EVIDENCE OF DEEP VENOUS THROMBOSIS. Renal U/S FINDINGS: Images are suboptimal. Both kidneys are poorly visualized. The right kidney measures 14.0 cm. The left kidney measures 10.1 cm. No mass is identified. There is no hydronephrosis. The urinary bladder is not significantly distended during the examination, approximately 155 cc. The ureteral jets are not visualized during this exam. IMPRESSION: Both kidneys are poorly visualized. No hydronephrosis is identified of either kidney within the limitations of this exam. Lung NM SCAN FINDINGS: There is normal uptake of radionuclide on perfusion portions of the examination. No perfusion defects are demonstrated. Uptake is normally homogeneous. IMPRESSION: Low probability for PE. CHEST X-RAY IMPRESSION: 1. Scattered reticular opacities may reflect [id number] pulmonary edema versus atypical pneumonia. 2. Right lower lobe pneumonia not excluded. 3. Mild cardiomegaly. CHEST CT FINDINGS: Lower Neck: Unremarkable Axilla, Mediastinum and Roseann: Mildly prominent axillary and mediastinal lymph nodes although predominantly normal-size. Limited evaluation of the roseann in the absence of intravenous contrast. Heart and Great Vessels: Mild cardiomegaly with trace pericardial fluid. The thoracic aorta is normal in caliber with mild calcified plaque. Mild mitral annular calcification. Central pulmonary arteries are normal caliber. Airway, Lungs and Pleura: Trachea and central airways are patent. There is interlobular septal thickening in the lungs. Scattered subsegmental atelectasis bilaterally. Moderate right and small to moderate left pleural effusions. Moderate dependent right and small dependent left lower lobe consolidations. No pneumothorax. Upper Abdomen: Retained contrast in the bilateral kidneys. Small Radiopaque structure in segment 2 of the liver. There is mild upper abdominal ascites. Chest Wall and Osseous Structures: Mildly displaced fractures of the anterolateral right 3rd and 4th ribs with callus formation. Multilevel thoracic spondylosis. Flowing anterior osteophytes of the thoracic spine compatible with dish . Chest wall edema. IMPRESSION: 1. CHF/volume overload, with mild cardiomegaly, moderate right and small to moderate left pleural effusions, interstitial pulmonary edema, chest wall edema, and upper abdominal ascites. 2. Healing anterior lateral right 3rd and 4th rib fracture deformities with callus formation. 3. Retained contrast in the bilateral kidneys which could be related to kidney dysfunction. *Problems/Diagnosis: (1) ASHELY (acute kidney injury) (2) CKD (chronic kidney disease) stage 4, GFR 15-29 ml/min (3) Congestive heart failure Status: Acute Total Time Spent on D/C: > 30 Minutes Date of Service: Apr 06, 2025 Billing Provider: DARYL SCHWARTZ MD Problem Qualifiers (1) Congestive heart failure: Heart failure type: unspecified Heart failure chronicity: acute on chronic Qualified Codes: I50.9 - Heart failure, unspecified MELANIE VITALE, RES Apr 06, 2025 19:42
[2025-04-14] MEDS ORDERED: INSU200I (09:42)
[2025-04-14] MEDS ORDERED: MELA3CAP2 PO (09:42)
[2025-04-14] MEDS ORDERED: AMIO200T76 PO (09:42)
[2025-04-14] MEDS ORDERED: ATOR-429 PO (09:42)
[2025-04-14] MEDS ORDERED: EMPA10TA PO (09:42)
[2025-04-14] MEDS ORDERED: APIX5TAB3 PO (09:42)
[2025-04-14] MEDS ORDERED: FURO10VI51 IV (09:42)
[2025-04-14] MEDS ORDERED: CARV3.122 PO (09:42)
[2025-04-14] MEDS ORDERED: INSU100V9 SQ (09:42)
[2025-04-14] MEDS ORDERED: DOCU100C40 PO (09:42)
== END 2025-04-06 18:00 | DRG 194 ==
LOC: ER 12:09 → ED HOLD 13:28 → PCU 3S 19:40
PROVIDERS: ADMIT Internal Medicine; ATTEND Internal Medicine
PROC: 5A0945A Assistance with Respiratory Ventilation, 24-96 Consecutive Hours, High Flow/Velocity Cannula (ICD-10-PCS; 2025-03-29)
PROC: 5A09357 Assistance with Respiratory Ventilation, Less than 24 Consecutive Hours, Continuous Positive Airway Pressure (ICD-10-PCS; 2025-03-31)
PROC: 5A0935A Assistance with Respiratory Ventilation, Less than 24 Consecutive Hours, High Flow/Velocity Cannula (ICD-10-PCS; 2025-03-31)
PROC: 5A0935A Assistance with Respiratory Ventilation, Less than 24 Consecutive Hours, High Flow/Velocity Cannula (ICD-10-PCS; 2025-04-01)
PROC: 5A09357 Assistance with Respiratory Ventilation, Less than 24 Consecutive Hours, Continuous Positive Airway Pressure (ICD-10-PCS; 2025-04-01)
PROC: 5A09357 Assistance with Respiratory Ventilation, Less than 24 Consecutive Hours, Continuous Positive Airway Pressure (ICD-10-PCS; 2025-04-02)
PROC: 5A0935A Assistance with Respiratory Ventilation, Less than 24 Consecutive Hours, High Flow/Velocity Cannula (ICD-10-PCS; 2025-04-02)
PROC: CB121ZZ Planar Nuclear Medicine Imaging of Lungs and Bronchi using Technetium 99m (Tc-99m) (ICD-10-PCS; principal; 2025-04-03)
PROC: 5A09357 Assistance with Respiratory Ventilation, Less than 24 Consecutive Hours, Continuous Positive Airway Pressure (ICD-10-PCS; 2025-04-03)
PROC: 5A0935A Assistance with Respiratory Ventilation, Less than 24 Consecutive Hours, High Flow/Velocity Cannula (ICD-10-PCS; 2025-04-03)
PROC: 5A09357 Assistance with Respiratory Ventilation, Less than 24 Consecutive Hours, Continuous Positive Airway Pressure (ICD-10-PCS; 2025-04-04)
PROC: 5A0935A Assistance with Respiratory Ventilation, Less than 24 Consecutive Hours, High Flow/Velocity Cannula (ICD-10-PCS; 2025-04-04)
PROC: 5A09357 Assistance with Respiratory Ventilation, Less than 24 Consecutive Hours, Continuous Positive Airway Pressure (ICD-10-PCS; 2025-04-05)
PROC: 5A0935A Assistance with Respiratory Ventilation, Less than 24 Consecutive Hours, High Flow/Velocity Cannula (ICD-10-PCS; 2025-04-05)
PROC: 5A09357 Assistance with Respiratory Ventilation, Less than 24 Consecutive Hours, Continuous Positive Airway Pressure (ICD-10-PCS; 2025-04-06)
PROC: 5A0935A Assistance with Respiratory Ventilation, Less than 24 Consecutive Hours, High Flow/Velocity Cannula (ICD-10-PCS; 2025-04-06)
DX: I13.0 Hypertensive heart and chronic kidney disease with heart failure and stage 1 through stage 4 chronic kidney disease, or unspecified chronic kidney disease (principal); N17.0 Acute kidney failure with tubular necrosis; J96.01 Acute respiratory failure with hypoxia; E87.4 Mixed disorder of acid-base balance; E66.2 Morbid (severe) obesity with alveolar hypoventilation; E11.22 Type 2 diabetes mellitus with diabetic chronic kidney disease; L03.031 Cellulitis of right toe; N17.9 Acute kidney failure, unspecified; E03.9 Hypothyroidism, unspecified; I50.33 Acute on chronic diastolic (congestive) heart failure; N18.4 Chronic kidney disease, stage 4 (severe); I48.91 Unspecified atrial fibrillation; E78.5 Hyperlipidemia, unspecified; E87.5 Hyperkalemia; E11.621 Type 2 diabetes mellitus with foot ulcer; L97.518 Non-pressure chronic ulcer of other part of right foot with other specified severity; Z88.8 Allergy status to other drugs, medicaments and biological substances; Z68.41 Body mass index [BMI] 40.0-44.9, adult
CPT/HCPCS: 36415; 71045; 71250; 76770; 78580; 80053; 80061; 80202; 80305; 81001; 82570; 82948; 83036; 83605; 83735; 83880; 83930; 83935; 84100; 84145; 84156; 84300; 84439; 84443; 84480; 84484; 85008; 85025; 85379; 85651; 85730; 86140; 87040; 87081; 87088; 87207; 93005; 93306; 93970; 94640; 94660; 94760; 97110; 97116; 97162; 97530; 99285; A5200; A6196; A6212; A6213; A6223; A6250; A6258; A6402; A6446; A6449; A7015; A9540; G0378; J0282; J0696; J1120; J1250; J1644; J1815; J1938; J2919; J3373; J3475; J3490; J7040; J7050; Q0177